=== PATIENT | female | born 1980 | race Caucasian/White ===

== ENCOUNTER 2022-02-23 19:25 | Inpatient (IN) | payer MEDICAID ==
[2022-02-23 20:52] LABS: #Basophils 0.1 thou/uL (0.0-0.2); #Eosinphils 0.3 thou/uL (0.0-0.7); #Lymphocytes 2.8 thou/uL (1.20-3.40); #Neutrophils 8.8 thou/uL (1.40-6.50); %Basophils 0.6 % (0.0-1.0); %Eosinophils 2.6 % (0.0-10.0); %Lymphocytes 21.6 % (21.0-51.0); %Monocytes 7.7 % (0.0-10.0); %Neutrophils 67.4 % (42.0-75.0); Hemoglobin 16.6 g/dL (12.0-16.0); Mean Corpuscular HGB CONC 32.5 g/dL (32.0-36.0); Mean Corpuscular Hemoglobin 30.7 pg (27.0-31.0); Mean Corpuscular Volume 94.5 fL (78.0-98.0); Mean Platelet Volume 8.4 fL (7.4-10.4); Platelet Count 299 thou/uL (130-400); RBC Distribution Width 15.3 % (11.5-14.5); Red Blood Cell (RBC) Count 5.42 mill/uL (4.20-5.40); White Blood Cell (WBC) Count 13.1 thou/uL (4.8-10.8)
[2022-02-23 21:00] LABS: BHCG - Serum Negative (NEGATIVE); Pregs Control Background? CLEAR/WHITE (CLR/WHITE); Pregs Control Bar Appear? YES (CONTROL BAR)
[2022-02-23] MEDS ORDERED: Fentanyl 100 MCG/2 ML VIAL ONE (21:00)
[2022-02-23 21:12] LABS: ALT (SGPT) 20 U/L (8-55); AST (SGOT) 21 U/L (5-34); Albumin 4.2 g/dL (3.5-5.0); Alkaline Phosphatase 93 U/L (40-110); Anion Gap 17 mmol/L (10-20); BUN (Urea Nitrogen) 20 mg/dL (7.0-18.7); Bilirubin, Total 0.9 mg/dL (0.2-1.2); Calc. Creatinine Clearance 0 mL/min (70-130); Calcium 9.4 mg/dL (7.8-10.44); Carbon Dioxide 25 mmol/L (22-29); Chloride 100 mmol/L (98-107); Estimated GFR 55; Globulin 4.2 g/dL (2.4-3.5); Glucose 208 mg/dL (70-105); Potassium 4.2 mmol/L (3.5-5.1); Protein, Total 8.4 g/dL (6.0-8.3); Sodium 138 mmol/L (136-145)
[2022-02-23] MEDS ORDERED: Ondansetron PF 4 MG/2 ML Vial IVP PRN (23:02)
[2022-02-23] MEDS ORDERED: hydrALAZINE 20 MG/ML VIAL SLOW IVP PRN (23:03)
[2022-02-23] MEDS ORDERED: HumaLOG 300 UNITS/3 ML VIAL SC PRN (23:04)
[2022-02-23] MEDS ORDERED: Dextrose 5% in Water 1,000 ML IV PRN (23:04)
[2022-02-23] MEDS ORDERED: Dextrose 50% Abboject 50 ML SYRINGE SLOW IVP PRN (23:04)
[2022-02-24] MEDS ORDERED: Cefepime 1 GM VIAL ONE (00:13)
[2022-02-24] MEDS ORDERED: Vancomycin 1 GM/200 ML BAG ONE (00:14)
[2022-02-24] MEDS ORDERED: Cefepime 2 GM VIAL ONE (00:15)
[2022-02-24 01:01] VITALS: BMI 47.4
[2022-02-24] MEDS: traMADol HCl 50 MG TAB PO PRN ×3 (03:47→14:17)
[2022-02-24] MEDS: Acetaminophen 325 MG TAB PO PRN ×2 (03:48→08:36)
[2022-02-24] MEDS: HumaLOG 300 UNITS/3 ML VIAL SC PRN ×2 (04:51→12:18)
[2022-02-24] MEDS ORDERED: Vancomycin 1 GM in Premix Bag 1 BAG IVPB SCH (05:00)
[2022-02-24 05:02] LABS: Bacteria/HPF None Seen HPF (None Seen); Bilirubin Negative (Negative); Blood, Urine Negative (Negative); Clarity Turbid (Clear); Glucose, Urine (Dipstick) >=1000 mg/dL (Negative); Ketone, Urine Trace mg/dL (Negative); Leukocyte 25 Leu/uL (Negative); Nitrite Negative (Negative); Protein, Urine (Dipstick) 70 mg/dL (Neg-Trace); Specific Gravity, Urine 1.024 (1.002-1.036); Urobilinogen Normal mg/dL (Less than 2)
[2022-02-24 05:05] LABS: Urine Culture Reflex No No
[2022-02-24 07:16] LABS: #Basophils 0.1 thou/uL (0.0-0.2); #Eosinphils 0.3 thou/uL (0.0-0.7); #Lymphocytes 2.2 thou/uL (1.20-3.40); #Monocytes 1.1 thou/uL (0.11-0.59); #Neutrophils 8.8 thou/uL (1.40-6.50); %Basophils 0.4 % (0.0-1.0); %Eosinophils 2.3 % (0.0-10.0); %Lymphocytes 17.4 % (21.0-51.0); %Monocytes 8.7 % (0.0-10.0); %Neutrophils 71.2 % (42.0-75.0); Hemoglobin 14.9 g/dL (12.0-16.0); Mean Corpuscular HGB CONC 32.1 g/dL (32.0-36.0); Mean Corpuscular Hemoglobin 30.4 pg (27.0-31.0); Mean Corpuscular Volume 94.6 fL (78.0-98.0); Mean Platelet Volume 8.7 fL (7.4-10.4); Platelet Count 285 thou/uL (130-400); RBC Distribution Width 15.2 % (11.5-14.5); White Blood Cell (WBC) Count 12.4 thou/uL (4.8-10.8)
[2022-02-24 07:40] LABS: Anion Gap 16 mmol/L (10-20); BUN (Urea Nitrogen) 24 mg/dL (7.0-18.7); Calc. Creatinine Clearance 90 mL/min (70-130); Calcium 8.7 mg/dL (7.8-10.44); Carbon Dioxide 25 mmol/L (22-29); Chloride 98 mmol/L (98-107); Estimated GFR 49; Glucose 293 mg/dL (70-105); Potassium 3.9 mmol/L (3.5-5.1); Sodium 135 mmol/L (136-145)
[2022-02-24] MEDS: Enoxaparin Sodium 40 MG/0.4 ML SYRINGE SC SCH (08:36)
[2022-02-24] MEDS: Cefepime 2 GM in Sodium Chloride 0.9% 100 ML IVPB SCH (11:23)
[2022-02-24] MEDS ORDERED: Morphine 2 MG/ML VIAL SLOW IVP PRN (11:33)
[2022-02-24] MEDS ORDERED: HYDROcodone/Acetaminophen 5/325 mg Tablet PO SCH (12:15)
[2022-02-24] MEDS ORDERED: Lidocaine 5% Patch TD SCH (12:30)
[2022-02-24] MEDS: Gabapentin 300 MG CAP PO SCH ×2 (14:13→21:05)
[2022-02-24] MEDS: HYDROcodone/Acetaminophen 5/325 mg Tablet PO PRN ×2 (17:42→21:35)
[2022-02-24] MEDS ORDERED: Transdermal Patch Removal TOP SCH (21:00)
[2022-02-24] MEDS: HumuLIN 70/30 (300 UNITS/3 ML VIAL) SC SCH (21:06)
[2022-02-25] MEDS: Cefepime 2 GM in Sodium Chloride 0.9% 100 ML IVPB SCH ×2 (00:11→12:39)
[2022-02-25] MEDS: HYDROcodone/Acetaminophen 5/325 mg Tablet PO PRN ×2 (02:45→08:45)
[2022-02-25] MEDS ORDERED: Vancomycin 1.5 GRAM/300 ML BAG 1.5 GM in Premix Bag 1 BAG IVPB SCH (03:00)
[2022-02-25] MEDS: HumaLOG 300 UNITS/3 ML VIAL SC PRN ×2 (05:48→11:57)
[2022-02-25 07:07] LABS: #Eosinphils 0.3 thou/uL (0.0-0.7); #Lymphocytes 2.9 thou/uL (1.20-3.40); #Neutrophils 7.2 thou/uL (1.40-6.50); %Basophils 0.2 % (0.0-1.0); %Eosinophils 2.8 % (0.0-10.0); %Lymphocytes 25.5 % (21.0-51.0); %Monocytes 8.6 % (0.0-10.0); %Neutrophils 62.8 % (42.0-75.0); Hemoglobin 14.4 g/dL (12.0-16.0); Mean Corpuscular HGB CONC 30.6 g/dL (32.0-36.0); Mean Corpuscular Volume 97.9 fL (78.0-98.0); Mean Platelet Volume 8.4 fL (7.4-10.4); Platelet Count 263 thou/uL (130-400); RBC Distribution Width 15.4 % (11.5-14.5); White Blood Cell (WBC) Count 11.4 thou/uL (4.8-10.8)
[2022-02-25 07:10] LABS: Hemoglobin A1c 9.2 % (4.0-6.0)
[2022-02-25 07:28] LABS: Anion Gap 16 mmol/L (10-20); BUN (Urea Nitrogen) 35 mg/dL (7.0-18.7); Calc. Creatinine Clearance 107 mL/min (70-130); Carbon Dioxide 21 mmol/L (22-29); Chloride 98 mmol/L (98-107); Estimated GFR 61; Glucose 190 mg/dL (70-105); Potassium 4.8 mmol/L (3.5-5.1); Sodium 130 mmol/L (136-145)
[2022-02-25] MEDS: Gabapentin 300 MG CAP PO SCH ×2 (08:47→14:10)
[2022-02-25] MEDS: HumuLIN 70/30 (300 UNITS/3 ML VIAL) SC SCH (08:48)
[2022-02-25] MEDS: Enoxaparin Sodium 40 MG/0.4 ML SYRINGE SC SCH (08:49)
[2022-02-25] MEDS ORDERED: Spironolactone 25 MG TAB PO SCH (09:00)
[2022-02-25] MEDS ORDERED: Atorvastatin Calcium 40 MG TAB PO SCH (09:00)
[2022-02-25] MEDS ORDERED: Multivit, Therapeutic 1 TAB PO SCH (09:00)
[2022-02-25] MEDS ORDERED: Empagliflozin 10 MG TAB PO SCH (09:00)
[2022-02-25] MEDS ORDERED: Lidocaine 5% Patch TD SCH (09:00)
[2022-02-25 11:55] VITALS: BP 97/64; TEMP 97.8
== END 2022-02-25 15:56 | disposition home or self-care (01) | DRG 563 ==
LOC: ERS 19:25 → T4-B 22:56 → OBSVTOIN 02-25 12:11
PROVIDERS: ADMIT Family Medicine; ATTEND Family Medicine
DX: S39.012A Strain of muscle, fascia and tendon of lower back, initial encounter (principal); N39.0 Urinary tract infection, site not specified; N17.9 Acute kidney failure, unspecified; I13.0 Hypertensive heart and chronic kidney disease with heart failure and stage 1 through stage 4 chronic kidney disease, or unspecified chronic kidney disease; I50.22 Chronic systolic (congestive) heart failure; Z68.42 Body mass index [BMI] 45.0-49.9, adult; Z20.822 Contact with and (suspected) exposure to COVID-19; I25.10 Atherosclerotic heart disease of native coronary artery without angina pectoris; E78.5 Hyperlipidemia, unspecified; N18.30 Chronic kidney disease, stage 3 unspecified; E11.22 Type 2 diabetes mellitus with diabetic chronic kidney disease; E66.01 Morbid (severe) obesity due to excess calories; E78.00 Pure hypercholesterolemia, unspecified; F41.9 Anxiety disorder, unspecified; F32.A Depression, unspecified; X58.XXXA Exposure to other specified factors, initial encounter; Z79.899 Other long term (current) drug therapy; Z95.810 Presence of automatic (implantable) cardiac defibrillator; I69.312 Visuospatial deficit and spatial neglect following cerebral infarction; Z88.0 Allergy status to penicillin; Z79.4 Long term (current) use of insulin; Z95.1 Presence of aortocoronary bypass graft; Z90.721 Acquired absence of ovaries, unilateral; Z83.3 Family history of diabetes mellitus; Z87.891 Personal history of nicotine dependence
CPT/HCPCS: 36415; 36416; 72100; 80048; 80053; 81001; 83036; 84703; 85025; 85652; 86140; 87040; 87086; 96365; 96372; 96375; 96376; G0378; J0692; J1650; J1815; J2405; J3010; J3370; J3490; U0003; U0005

== ENCOUNTER 2022-05-05 16:56 | Inpatient (IN) | payer MEDICAID ==
[~2022-05-05 16:56] MED LIST: Iopamidol 370 76% 100 ML VIAL ONE
[2022-05-05 18:07] LABS: CKMB 1.1 ng/mL (0-6.6)
[2022-05-05] MEDS ORDERED: Senokot S 8.6-50 MG TAB PO PRN (20:29)
[2022-05-05] MEDS ORDERED: Morphine 4 MG/ML VIAL SLOW IVP PRN (20:29)
[2022-05-05] MEDS ORDERED: Ondansetron ODT 4 MG TAB PO PRN (20:29)
[2022-05-05] MEDS ORDERED: HumaLOG 300 UNITS/3 ML VIAL SC PRN ×2 (20:43)
[2022-05-05] MEDS ORDERED: Dextrose 50% Abboject 50 ML SYRINGE SLOW IVP PRN (20:43)
[2022-05-05] MEDS ORDERED: Dextrose 5% in Water 1,000 ML IV PRN (20:43)
[2022-05-05 21:21] LABS: Magnesium 1.4 mg/dL (1.6-2.6); Phosphorus 2.4 mg/dL (2.3-4.7)
[2022-05-05 21:22] VITALS: BMI 48.9
[2022-05-05] MEDS ORDERED: Electrolyte Replacement Protocol 1 EACH FS SCH (22:00)
[2022-05-05] MEDS: HYDROcodone/Acetaminophen 7.5/325 mg Tablet PO PRN (22:39)
[2022-05-05] MEDS: Atorvastatin Calcium 40 MG TAB PO SCH (22:39)
[2022-05-05] MEDS: Ondansetron PF 4 MG/2 ML Vial IVP PRN (22:39)
[2022-05-05] MEDS: tiZANidine HCl 4 MG TAB PO SCH (22:40)
[2022-05-06] MEDS ORDERED: Magnesium Sulfate In Water 4 GM in Premix Bag 1 BAG IVPB SCH (01:00)
[2022-05-06] MEDS: HYDROcodone/Acetaminophen 7.5/325 mg Tablet PO PRN ×4 (03:05→22:45)
[2022-05-06 05:00] LABS: #Basophils 0.1 thou/uL (0.0-0.2); #Eosinphils 0.9 thou/uL (0.0-0.7); #Lymphocytes 1.9 thou/uL (1.20-3.40); #Monocytes 0.8 thou/uL (0.11-0.59); #Neutrophils 6.7 thou/uL (1.40-6.50); %Basophils 0.6 % (0.0-1.0); %Eosinophils 8.7 % (0.0-10.0); %Lymphocytes 18.3 % (21.0-51.0); %Monocytes 7.7 % (0.0-10.0); %Neutrophils 64.7 % (42.0-75.0); Hemoglobin 13.7 g/dL (12.0-16.0); Mean Corpuscular HGB CONC 31.6 g/dL (32.0-36.0); Mean Corpuscular Hemoglobin 29.7 pg (27.0-31.0); Mean Platelet Volume 8.2 fL (7.4-10.4); Platelet Count 285 thou/uL (130-400); RBC Distribution Width 15.2 % (11.5-14.5); Red Blood Cell (RBC) Count 4.61 mill/uL (4.20-5.40); White Blood Cell (WBC) Count 10.3 thou/uL (4.8-10.8)
[2022-05-06 05:17] LABS: Anion Gap 15 mmol/L (10-20); BUN (Urea Nitrogen) 17 mg/dL (7.0-18.7); Calc. Creatinine Clearance 122 mL/min (70-130); Calcium 8.6 mg/dL (7.8-10.44); Carbon Dioxide 22 mmol/L (22-29); Chloride 100 mmol/L (98-107); Estimated GFR 68; Glucose 282 mg/dL (70-105); Potassium 3.5 mmol/L (3.5-5.1); Sodium 133 mmol/L (136-145)
[2022-05-06 05:56] LABS: Magnesium 2.7 mg/dL (1.6-2.6)
[2022-05-06] MEDS ORDERED: Furosemide 40 MG/4 ML VIAL SLOW IVP SCH (06:00)
[2022-05-06] MEDS ORDERED: FLU VACC QS2022-23(6MOS UP)/PF 60 MCG/0.5 ML SYRINGE IM ONE (09:00)
[2022-05-06] MEDS ORDERED: Potassium Chloride 20 MEQ TAB PO SCH (09:00)
[2022-05-06] MEDS: Carvedilol 3.125 MG TAB PO SCH ×2 (10:01→17:53)
[2022-05-06] MEDS: Furosemide 40 MG TAB PO SCH (10:01)
[2022-05-06] MEDS ORDERED: Iopamidol-370 76% 500 ML 1 ML ONE (12:08)
[2022-05-06] MEDS: Ondansetron PF 4 MG/2 ML Vial IVP PRN ×2 (13:59→20:07)
[2022-05-06] MEDS: Atorvastatin Calcium 40 MG TAB PO SCH (20:12)
[2022-05-06] MEDS: tiZANidine HCl 4 MG TAB PO SCH (20:12)
[2022-05-06] MEDS: HumuLIN 70/30 (300 UNITS/3 ML VIAL) SC SCH (21:38)
[2022-05-07] MEDS ORDERED: diphenhydrAMINE 25 MG CAP PO SCH (02:15)
[2022-05-07] MEDS: Acetaminophen 325 MG TAB PO PRN ×3 (02:20→14:23)
[2022-05-07 05:15] LABS: #Eosinphils 0.7 thou/uL (0.0-0.7); #Lymphocytes 1.5 thou/uL (1.20-3.40); #Monocytes 0.8 thou/uL (0.11-0.59); #Neutrophils 5.3 thou/uL (1.40-6.50); %Eosinophils 8.8 % (0.0-10.0); %Lymphocytes 18.2 % (21.0-51.0); %Monocytes 9.4 % (0.0-10.0); %Neutrophils 63.7 % (42.0-75.0); Hemoglobin 13.6 g/dL (12.0-16.0); Mean Corpuscular HGB CONC 31.4 g/dL (32.0-36.0); Mean Corpuscular Volume 95.6 fL (78.0-98.0); Mean Platelet Volume 8.3 fL (7.4-10.4); Platelet Count 292 thou/uL (130-400); RBC Distribution Width 15.2 % (11.5-14.5); Red Blood Cell (RBC) Count 4.53 mill/uL (4.20-5.40); White Blood Cell (WBC) Count 8.4 thou/uL (4.8-10.8)
[2022-05-07 05:42] LABS: Anion Gap 15 mmol/L (10-20); BUN (Urea Nitrogen) 26 mg/dL (7.0-18.7); Calc. Creatinine Clearance 81 mL/min (70-130); Calcium 8.8 mg/dL (7.8-10.44); Carbon Dioxide 24 mmol/L (22-29); Chloride 98 mmol/L (98-107); Cholesterol 173 mg/dl (< 200 Desired); Estimated GFR 42; Glucose 183 mg/dL (70-105); HDL Cholesterol 29 mg/dL (>60 Neg Risk); LDL Cholesterol, Calculated 95 mg/dL; Sodium 133 mmol/L (136-145); Triglycerides 244 mg/dL (Less than 150)
[2022-05-07] MEDS: Carvedilol 3.125 MG TAB PO SCH ×2 (08:04→18:52)
[2022-05-07] MEDS: Furosemide 40 MG TAB PO SCH (08:04)
[2022-05-07] MEDS: Empagliflozin 10 MG TAB PO SCH (09:05)
[2022-05-07] MEDS: HumuLIN 70/30 (300 UNITS/3 ML VIAL) SC SCH ×2 (09:05→22:02)
[2022-05-07] MEDS ORDERED: diphenhydrAMINE 25 MG CAP PO PRN (09:25)
[2022-05-07] MEDS: tiZANidine HCl 4 MG TAB PO SCH (22:00)
[2022-05-07] MEDS: HYDROcodone/Acetaminophen 7.5/325 mg Tablet PO PRN (22:01)
[2022-05-07] MEDS: Atorvastatin Calcium 40 MG TAB PO SCH (22:01)
[2022-05-08] MEDS: HYDROcodone/Acetaminophen 7.5/325 mg Tablet PO PRN ×3 (03:39→21:04)
[2022-05-08 05:06] LABS: #Basophils 0.1 thou/uL (0.0-0.2); #Eosinphils 0.7 thou/uL (0.0-0.7); #Monocytes 1.1 thou/uL (0.11-0.59); #Neutrophils 4.8 thou/uL (1.40-6.50); %Basophils 0.6 % (0.0-1.0); %Eosinophils 8.6 % (0.0-10.0); %Lymphocytes 22.8 % (21.0-51.0); %Monocytes 12.3 % (0.0-10.0); %Neutrophils 55.6 % (42.0-75.0); Hemoglobin 14.3 g/dL (12.0-16.0); Mean Corpuscular HGB CONC 31.9 g/dL (32.0-36.0); Mean Corpuscular Hemoglobin 30.3 pg (27.0-31.0); Mean Corpuscular Volume 95.2 fL (78.0-98.0); Mean Platelet Volume 8.3 fL (7.4-10.4); Platelet Count 304 thou/uL (130-400); RBC Distribution Width 15.3 % (11.5-14.5); Red Blood Cell (RBC) Count 4.71 mill/uL (4.20-5.40); White Blood Cell (WBC) Count 8.6 thou/uL (4.8-10.8)
[2022-05-08 05:18] LABS: Anion Gap 15 mmol/L (10-20); BUN (Urea Nitrogen) 27 mg/dL (7.0-18.7); Calc. Creatinine Clearance 125 mL/min (70-130); Calcium 8.9 mg/dL (7.8-10.44); Carbon Dioxide 20 mmol/L (22-29); Chloride 106 mmol/L (98-107); Estimated GFR 73; Glucose 93 mg/dL (70-105); Potassium 3.6 mmol/L (3.5-5.1); Sodium 137 mmol/L (136-145)
[2022-05-08] MEDS ORDERED: Ketorolac Tromethamine 30 MG/ML VIAL IVP SCH (09:00)
[2022-05-08] MEDS: Empagliflozin 10 MG TAB PO SCH (12:37)
[2022-05-08] MEDS: Carvedilol 3.125 MG TAB PO SCH ×2 (12:37→19:20)
[2022-05-08] MEDS: HumuLIN 70/30 (300 UNITS/3 ML VIAL) SC SCH ×2 (12:40→21:03)
[2022-05-08] MEDS ORDERED: predniSONE 20 MG TAB PO SCH (15:45)
[2022-05-08] MEDS: Atorvastatin Calcium 40 MG TAB PO SCH (21:03)
[2022-05-08] MEDS: tiZANidine HCl 4 MG TAB PO SCH (21:03)
[2022-05-09] MEDS: HYDROcodone/Acetaminophen 7.5/325 mg Tablet PO PRN ×2 (02:22→14:53)
[2022-05-09 05:21] LABS: #Eosinphils 0.1 thou/uL (0.0-0.7); #Lymphocytes 1.8 thou/uL (1.20-3.40); #Monocytes 0.7 thou/uL (0.11-0.59); #Neutrophils 8.6 thou/uL (1.40-6.50); %Basophils 0.1 % (0.0-1.0); %Eosinophils 0.7 % (0.0-10.0); %Lymphocytes 16.2 % (21.0-51.0); Hemoglobin 13.7 g/dL (12.0-16.0); Mean Corpuscular HGB CONC 31.7 g/dL (32.0-36.0); Mean Corpuscular Volume 94.7 fL (78.0-98.0); Mean Platelet Volume 8.4 fL (7.4-10.4); Platelet Count 311 thou/uL (130-400); RBC Distribution Width 15.5 % (11.5-14.5); Red Blood Cell (RBC) Count 4.56 mill/uL (4.20-5.40); White Blood Cell (WBC) Count 11.2 thou/uL (4.8-10.8)
[2022-05-09 05:37] LABS: Anion Gap 14 mmol/L (10-20); BUN (Urea Nitrogen) 25 mg/dL (7.0-18.7); Calc. Creatinine Clearance 142 mL/min (70-130); Calcium 8.8 mg/dL (7.8-10.44); Carbon Dioxide 20 mmol/L (22-29); Chloride 104 mmol/L (98-107); Estimated GFR 82; Glucose 173 mg/dL (70-105); Potassium 4.4 mmol/L (3.5-5.1); Sodium 134 mmol/L (136-145)
[2022-05-09] MEDS ORDERED: Sodium Chloride 0.9% 500 ML IV SCH ×2 (08:45→08:46)
[2022-05-09] MEDS ORDERED: Lidocaine 5% Patch TD SCH (11:00)
[2022-05-09] MEDS: HumuLIN 70/30 (300 UNITS/3 ML VIAL) SC SCH (14:28)
[2022-05-09] MEDS: Empagliflozin 10 MG TAB PO SCH (14:28)
[2022-05-09] MEDS: Carvedilol 3.125 MG TAB PO SCH ×2 (14:28→17:18)
[2022-05-09 15:56] VITALS: BP 152/95; TEMP 97.5
[2022-05-09] MEDS ORDERED: Transdermal Patch Removal LIDOCAINE TOP SCH (23:00)
[2022-05-10] MEDS ORDERED: Spironolactone 25 MG TAB PO SCH (08:00)
[2022-05-10] MEDS ORDERED: Torsemide 20 MG TAB PO SCH (09:00)
== END 2022-05-09 20:23 | disposition home or self-care (01) | DRG 291 ==
LOC: SUATTDRO 16:56 → ERS 16:56 → 2SW 19:46 → OBSVTOIN 05-06 16:39
PROVIDERS: ADMIT Student in an Organized Health Care Education/Training Program; ATTEND Internal Medicine
DX: I11.0 Hypertensive heart disease with heart failure (principal); I50.23 Acute on chronic systolic (congestive) heart failure; Z68.42 Body mass index [BMI] 45.0-49.9, adult; E78.5 Hyperlipidemia, unspecified; F32.A Depression, unspecified; F41.9 Anxiety disorder, unspecified; E11.65 Type 2 diabetes mellitus with hyperglycemia; E66.01 Morbid (severe) obesity due to excess calories; E78.00 Pure hypercholesterolemia, unspecified; I27.21 Secondary pulmonary arterial hypertension; Z20.822 Contact with and (suspected) exposure to COVID-19; Z88.0 Allergy status to penicillin; Z95.810 Presence of automatic (implantable) cardiac defibrillator; Z95.1 Presence of aortocoronary bypass graft; Z86.73 Personal history of transient ischemic attack (TIA), and cerebral infarction without residual deficits; Z79.4 Long term (current) use of insulin; Z79.899 Other long term (current) drug therapy
CPT/HCPCS: 36415; 36416; 71275; 74177; 76856; 78451; 80048; 80061; 82553; 83735; 83880; 84100; 85025; 93005; 93306; A9500; G0378; J1815; J1885; J2405; J3475; J7030; J7512; Q9967; U0003; U0005

== ENCOUNTER 2022-06-23 13:35 | Inpatient (IN) | payer MEDICAID ==
[2022-06-23 14:33] LABS: Actual Bicarbonate (HCO3v) 18 mEq/L (22-28); Base Excess -7.3 mEq/L (-2.0 to +3.0); Calcium, Ionized (venous) 1.05 mmol/L (1.16-1.32); Chloride (VBG) 101 mmol/L (98-106); Hemoglobin (Hb) 14.3 g/dL (11.7-15.5); Potassium (VBG) 4.38 mmol/L (3.70-5.30); Sodium 135.1 mmol/L (133-146); pH (venous) 7.33 (7.32-7.43)
[2022-06-23 15:02] LABS: Anion Gap 19 mmol/L (10-20); BUN (Urea Nitrogen) 15 mg/dL (7.0-18.7); CK (CPK) 63 U/L (29-168); Calc. Creatinine Clearance 0 mL/min (70-130); Calcium 8.7 mg/dL (7.8-10.44); Carbon Dioxide 15 mmol/L (22-29); Chloride 103 mmol/L (98-107); Estimated GFR 80; Glucose 387 mg/dL (70-105); Potassium 4.4 mmol/L (3.5-5.1); Sodium 133 mmol/L (136-145)
[2022-06-23] MEDS ORDERED: NS 0.9% w/ 20 MEQ KCL 1,000 ML IV PRN ×2 (15:54)
[2022-06-23] MEDS ORDERED: Electrolyte Replacement Protocol 1 EACH IVPB SCH (15:54)
[2022-06-23] MEDS ORDERED: Sodium Chloride 0.9% 1,000 ML IV PRN ×4 (15:54)
[2022-06-23] MEDS ORDERED: Dextrose 5 %-0.45 % NaCl 1,000 ML IV PRN (15:54)
[2022-06-23] MEDS ORDERED: D5 1/2 NS w/20 mEq KCL 1,000 ML IV PRN (15:54)
[2022-06-23] MEDS ORDERED: Acetaminophen 325 MG TAB PO PRN (15:58)
[2022-06-23] MEDS ORDERED: HUMULIN R 100 UNITS in Sodium Chloride 0.9% 100 ML IVPB SCH (16:00)
[2022-06-23] MEDS ORDERED: Furosemide 40 MG/4 ML VIAL SLOW IVP SCH (16:00)
[2022-06-23 16:27] LABS: SARS-CoV-2 NAA Rapid Test Not Detected (NotDetected)
[2022-06-23 16:32] LABS: Anion Gap 15 mmol/L (10-20); BUN (Urea Nitrogen) 15 mg/dL (7.0-18.7); Calc. Creatinine Clearance 0 mL/min (70-130); Calcium 8.6 mg/dL (7.8-10.44); Carbon Dioxide 17 mmol/L (22-29); Chloride 103 mmol/L (98-107); Estimated GFR 88; Glucose 310 mg/dL (70-105); Potassium 4.2 mmol/L (3.5-5.1); Sodium 131 mmol/L (136-145)
[2022-06-23 16:36] LABS: Lactic Acid 4.6 mmol/L (0.5-2.2)
[2022-06-23] MEDS ORDERED: Ondansetron PF 4 MG/2 ML Vial ONE (16:44)
[2022-06-23] MEDS ORDERED: HYDROcodone/Acetaminophen 5/325 mg Tablet ONE (18:09)
[2022-06-23] MEDS ORDERED: Furosemide 40 MG/4 ML VIAL ONE (18:09)
[2022-06-23] MEDS: HYDROcodone/Acetaminophen 5/325 mg Tablet PO PRN (18:20)
[2022-06-23] MEDS ORDERED: Fluconazole 100 MG TAB PO SCH (18:30)
[2022-06-23] MEDS: Carvedilol 3.125 MG TAB PO SCH (19:01)
[2022-06-23 20:59] LABS: Anion Gap 16 mmol/L (10-20); BUN (Urea Nitrogen) 16 mg/dL (7.0-18.7); Calc. Creatinine Clearance 150 mL/min (70-130); Calcium 8.4 mg/dL (7.8-10.44); Carbon Dioxide 16 mmol/L (22-29); Chloride 105 mmol/L (98-107); Estimated GFR 85; Glucose 234 mg/dL (70-105); Potassium 4.9 mmol/L (3.5-5.1); Sodium 132 mmol/L (136-145)
[2022-06-23] MEDS ORDERED: Doxycycline 100 MG in Sodium Chloride 0.9% 100 ML IVPB SCH (21:00)
[2022-06-23] MEDS: Atorvastatin Calcium 40 MG TAB PO SCH (21:40)
[2022-06-23] MEDS: Famotidine 20 MG TAB PO SCH (21:40)
[2022-06-23] MEDS: Torsemide 20 MG TAB PO SCH (21:52)
[2022-06-23] MEDS ORDERED: Insulin Glargine 30 UNITS/0.3 ML VIAL SC SCH (22:45)
[2022-06-23] MEDS ORDERED: Dextrose 50% Abboject 50 ML SYRINGE IVP PRN (23:30)
[2022-06-23] MEDS ORDERED: Dextrose 5% in Water 1,000 ML IV PRN (23:30)
[2022-06-23] MEDS ORDERED: HumaLOG 300 UNITS/3 ML VIAL SC PRN (23:30)
[2022-06-24 01:15] LABS: Anion Gap 12 mmol/L (10-20); BUN (Urea Nitrogen) 20 mg/dL (7.0-18.7); Calc. Creatinine Clearance 128 mL/min (70-130); Carbon Dioxide 21 mmol/L (22-29); Chloride 105 mmol/L (98-107); Estimated GFR 70; Glucose 251 mg/dL (70-105); Potassium 5.1 mmol/L (3.5-5.1); Sodium 133 mmol/L (136-145)
[2022-06-24 04:03] LABS: Anion Gap 14 mmol/L (10-20); BUN (Urea Nitrogen) 20 mg/dL (7.0-18.7); Calc. Creatinine Clearance 147 mL/min (70-130); Carbon Dioxide 17 mmol/L (22-29); Chloride 105 mmol/L (98-107); Estimated GFR 79; Glucose 244 mg/dL (70-105); Potassium 5.1 mmol/L (3.5-5.1); Sodium 131 mmol/L (136-145)
[2022-06-24] MEDS: HumaLOG 300 UNITS/3 ML VIAL SC PRN ×2 (05:59→11:43)
[2022-06-24] MEDS: Torsemide 20 MG TAB PO SCH ×2 (09:59→20:53)
[2022-06-24] MEDS: Spironolactone 25 MG TAB PO SCH (09:59)
[2022-06-24] MEDS: Aspirin 81 mg Enteric Coated Tablet PO SCH (09:59)
[2022-06-24] MEDS: Sertraline 100 MG TAB PO SCH (09:59)
[2022-06-24] MEDS: Insulin Regular 300 UNITS/3 ML VIAL SC SCH ×3 (09:59→18:00)
[2022-06-24] MEDS: Carvedilol 3.125 MG TAB PO SCH ×2 (09:59→17:59)
[2022-06-24] MEDS: Famotidine 20 MG TAB PO SCH ×2 (09:59→20:53)
[2022-06-24] MEDS: HumuLIN 70/30 (300 UNITS/3 ML VIAL) SC SCH ×2 (10:01→21:42)
[2022-06-24] MEDS: Enoxaparin Sodium 40 MG/0.4 ML SYRINGE SC SCH (10:04)
[2022-06-24 10:08] LABS: Lactic Acid 2.2 mmol/L (0.5-2.2)
[2022-06-24 10:11] LABS: Anion Gap 11 mmol/L (10-20); BUN (Urea Nitrogen) 21 mg/dL (7.0-18.7); Calc. Creatinine Clearance 147 mL/min (70-130); Calcium 8.4 mg/dL (7.8-10.44); Carbon Dioxide 22 mmol/L (22-29); Chloride 106 mmol/L (98-107); Estimated GFR 79; Glucose 208 mg/dL (70-105); Potassium 4.4 mmol/L (3.5-5.1); Sodium 135 mmol/L (136-145)
[2022-06-24 12:43] LABS: Magnesium 1.7 mg/dL (1.6-2.6); Phosphorus 2.2 mg/dL (2.3-4.7)
[2022-06-24] MEDS ORDERED: Magnesium 2 GM/50 ML(in water) 2 GM in Premix Bag 1 BAG IVPB SCH (13:15)
[2022-06-24] MEDS ORDERED: PHOS-NAK 1 PKT PACK PO SCH (16:30)
[2022-06-24] MEDS: Atorvastatin Calcium 40 MG TAB PO SCH (20:53)
[2022-06-24] MEDS: Magnesium Chloride 64 MG TAB PO SCH (20:53)
[2022-06-24] MEDS: HYDROcodone/Acetaminophen 5/325 mg Tablet PO PRN (20:58)
[2022-06-24] MEDS: Ondansetron PF 4 MG/2 ML Vial IVP PRN (21:44)
[2022-06-25] MEDS: Ondansetron PF 4 MG/2 ML Vial IVP PRN (04:23)
[2022-06-25 04:35] LABS: Anion Gap 15 mmol/L (10-20); BUN (Urea Nitrogen) 26 mg/dL (7.0-18.7); Calc. Creatinine Clearance 135 mL/min (70-130); Calcium 8.4 mg/dL (7.8-10.44); Carbon Dioxide 22 mmol/L (22-29); Chloride 101 mmol/L (98-107); Estimated GFR 71; Glucose 105 mg/dL (70-105); Potassium 4.3 mmol/L (3.5-5.1); Sodium 134 mmol/L (136-145)
[2022-06-25] MEDS: Aspirin 81 mg Enteric Coated Tablet PO SCH (08:26)
[2022-06-25] MEDS: Sertraline 100 MG TAB PO SCH (08:26)
[2022-06-25] MEDS: Spironolactone 25 MG TAB PO SCH (08:26)
[2022-06-25] MEDS: Carvedilol 3.125 MG TAB PO SCH ×2 (08:26→17:29)
[2022-06-25] MEDS: Famotidine 20 MG TAB PO SCH ×2 (08:26→20:42)
[2022-06-25] MEDS: Torsemide 20 MG TAB PO SCH ×2 (08:26→20:41)
[2022-06-25] MEDS: Enoxaparin Sodium 40 MG/0.4 ML SYRINGE SC SCH (08:27)
[2022-06-25] MEDS: Magnesium Chloride 64 MG TAB PO SCH ×2 (08:27→20:41)
[2022-06-25] MEDS: HumuLIN 70/30 (300 UNITS/3 ML VIAL) SC SCH ×2 (08:29→20:45)
[2022-06-25] MEDS: HYDROcodone/Acetaminophen 5/325 mg Tablet PO PRN ×2 (08:35→20:40)
[2022-06-25] MEDS: Insulin Regular 300 UNITS/3 ML VIAL SC SCH ×3 (08:57→17:29)
[2022-06-25] MEDS: Atorvastatin Calcium 40 MG TAB PO SCH (20:41)
[2022-06-26] MEDS: HYDROcodone/Acetaminophen 5/325 mg Tablet PO PRN ×4 (04:11→19:42)
[2022-06-26] MEDS: Ondansetron PF 4 MG/2 ML Vial IVP PRN ×2 (04:11→19:42)
[2022-06-26 05:22] LABS: Hemoglobin 12.9 g/dL (12.0-16.0); Mean Corpuscular Hemoglobin 30.3 pg (27.0-31.0); Mean Corpuscular Volume 97.8 fl (78.0-98.0); Mean Platelet Volume 8.1 fL (7.4-10.4); Platelet Count 239 10x3/uL (130-400); RBC Distribution Width 16.3 % (11.5-14.5); Red Blood Cell (RBC) Count 4.24 mill/uL (4.20-5.40); White Blood Cell (WBC) Count 11.9 10x3/uL (4.8-10.8)
[2022-06-26 05:23] LABS: #Basophils 0.1 thou/uL (0.0-0.2); #Eosinphils 0.2 thou/uL (0.0-0.7); #Lymphocytes 2.9 thou/uL (1.20-3.40); #Monocytes 1.4 thou/uL (0.11-0.59); #Neutrophils 7.7 thou/uL (1.40-6.50); %Basophils 0.6 % (0.0-1.0); %Eosinophils 1.4 % (0.0-10.0); %Lymphocytes 23.5 % (21.0-51.0); %Monocytes 11.5 % (0.0-10.0)
[2022-06-26 05:30] LABS: Anion Gap 15 mmol/L (10-20); BUN (Urea Nitrogen) 28 mg/dL (7.0-18.7); Calc. Creatinine Clearance 129 mL/min (70-130); Calcium 8.1 mg/dL (7.8-10.44); Carbon Dioxide 21 mmol/L (22-29); Chloride 99 mmol/L (98-107); Estimated GFR 68; Glucose 132 mg/dL (70-105); Sodium 131 mmol/L (136-145)
[2022-06-26] MEDS: Empagliflozin 10 MG TAB PO SCH (08:45)
[2022-06-26] MEDS: Aspirin 81 mg Enteric Coated Tablet PO SCH (08:45)
[2022-06-26] MEDS: Carvedilol 3.125 MG TAB PO SCH ×2 (08:45→17:48)
[2022-06-26] MEDS: Senokot S 8.6-50 MG TAB PO PRN (08:46)
[2022-06-26] MEDS: Spironolactone 25 MG TAB PO SCH (08:46)
[2022-06-26] MEDS: Enoxaparin Sodium 40 MG/0.4 ML SYRINGE SC SCH (08:46)
[2022-06-26] MEDS: Sertraline 100 MG TAB PO SCH (08:46)
[2022-06-26] MEDS: Famotidine 20 MG TAB PO SCH ×2 (08:46→20:49)
[2022-06-26] MEDS: Torsemide 20 MG TAB PO SCH ×2 (08:46→20:50)
[2022-06-26] MEDS: Magnesium Chloride 64 MG TAB PO SCH ×2 (08:47→20:50)
[2022-06-26] MEDS: Insulin Regular 300 UNITS/3 ML VIAL SC SCH ×3 (08:48→17:49)
[2022-06-26] MEDS: HumuLIN 70/30 (300 UNITS/3 ML VIAL) SC SCH ×2 (08:50→20:50)
[2022-06-26] MEDS: HumaLOG 300 UNITS/3 ML VIAL SC PRN (11:41)
[2022-06-26] MEDS ORDERED: Furosemide 40 MG/4 ML VIAL SLOW IVP SCH (13:15)
[2022-06-26] MEDS: Atorvastatin Calcium 40 MG TAB PO SCH (20:49)
[2022-06-27] MEDS: HYDROcodone/Acetaminophen 5/325 mg Tablet PO PRN ×3 (02:23→20:25)
[2022-06-27] MEDS: Ondansetron PF 4 MG/2 ML Vial IVP PRN ×3 (02:23→20:25)
[2022-06-27 04:06] LABS: BHCG - Serum Negative (NEGATIVE); Pregs Control Background? CLEAR/WHITE (CLR/WHITE); Pregs Control Bar Appear? YES (CONTROL BAR)
[2022-06-27 04:25] LABS: Anion Gap 15 mmol/L (10-20); BUN (Urea Nitrogen) 28 mg/dL (7.0-18.7); Calc. Creatinine Clearance 139 mL/min (70-130); Calcium 8.1 mg/dL (7.8-10.44); Carbon Dioxide 20 mmol/L (22-29); Chloride 101 mmol/L (98-107); Estimated GFR 74; Glucose 80 mg/dL (70-105); Potassium 4.2 mmol/L (3.5-5.1); Sodium 132 mmol/L (136-145)
[2022-06-27 04:54] LABS: Anisocytosis SLIGHT = 6-15 cells (100X) (0-5/hpf); Band 2 % (5-11); Eosinophils 1 % (0-10); Hemoglobin 12.4 g/dL (12.0-16.0); Hypochromia SLIGHT = 6-15 cells (100X) (0-5/hpf); Lymphocytes 17 % (21-51); MDiff Complete? YES; Mean Corpuscular HGB CONC 30.3 g/dL (32.0-36.0); Mean Corpuscular Hemoglobin 29.6 pg (27.0-31.0); Mean Corpuscular Volume 97.8 fl (78.0-98.0); Mean Platelet Volume 8.9 fL (7.4-10.4); Monocytes 8 % (0-10); Neutrophil 72 % (42-75); Nucleated RBC 2 % (0); Platelet Count 228 10x3/uL (130-400); Platelet Morphology Comment Appears Adequate; Polychromasia SLIGHT = 2-3 cells (100X) (0-2/hpf); RBC Distribution Width 16.2 % (11.5-14.5); Red Blood Cell (RBC) Count 4.17 mill/uL (4.20-5.40); Target Cells SLIGHT = 2-5 cells (100X) (0-1/hpf); White Blood Cell (WBC) Count 12.3 10x3/uL (4.8-10.8)
[2022-06-27] MEDS ORDERED: Regadenoson 0.4 MG/5 ML SYRINGE ONE (08:16)
[2022-06-27] MEDS: Spironolactone 25 MG TAB PO SCH (08:50)
[2022-06-27] MEDS: Famotidine 20 MG TAB PO SCH ×2 (08:50→20:25)
[2022-06-27] MEDS: Aspirin 81 mg Enteric Coated Tablet PO SCH (08:50)
[2022-06-27] MEDS: Empagliflozin 10 MG TAB PO SCH (08:50)
[2022-06-27] MEDS: Enoxaparin Sodium 40 MG/0.4 ML SYRINGE SC SCH (08:50)
[2022-06-27] MEDS: Sertraline 100 MG TAB PO SCH (08:50)
[2022-06-27] MEDS: Torsemide 20 MG TAB PO SCH ×2 (08:50→20:25)
[2022-06-27] MEDS: Carvedilol 3.125 MG TAB PO SCH ×2 (08:50→16:38)
[2022-06-27] MEDS: Insulin Regular 300 UNITS/3 ML VIAL SC SCH ×3 (08:51→16:39)
[2022-06-27] MEDS: HumuLIN 70/30 (300 UNITS/3 ML VIAL) SC SCH ×2 (08:52→21:14)
[2022-06-27] MEDS: Magnesium Chloride 64 MG TAB PO SCH ×2 (08:52→20:24)
[2022-06-27] MEDS: Senokot S 8.6-50 MG TAB PO PRN (08:56)
[2022-06-27] MEDS ORDERED: Spironolactone 25 MG TAB PO SCH ×2 (09:00)
[2022-06-27] MEDS ORDERED: FLU VACC QS2022-23(6MOS UP)/PF 60 MCG/0.5 ML SYRINGE IM ONE (09:00)
[2022-06-27 17:57] VITALS: BMI 52.0
[2022-06-27] MEDS ORDERED: diphenhydrAMINE 25 MG CAP PO SCH (19:45)
[2022-06-27] MEDS: Atorvastatin Calcium 40 MG TAB PO SCH (20:27)
[2022-06-28] MEDS: HYDROcodone/Acetaminophen 5/325 mg Tablet PO PRN ×3 (01:56→14:00)
[2022-06-28 04:22] LABS: Anion Gap 12 mmol/L (10-20); BUN (Urea Nitrogen) 24 mg/dL (7.0-18.7); Calc. Creatinine Clearance 127 mL/min (70-130); Calcium 8.3 mg/dL (7.8-10.44); Carbon Dioxide 24 mmol/L (22-29); Chloride 100 mmol/L (98-107); Estimated GFR 67; Glucose 138 mg/dL (70-105); Potassium 3.2 mmol/L (3.5-5.1); Sodium 133 mmol/L (136-145)
[2022-06-28 04:29] LABS: #Basophils 0.1 thou/uL (0.0-0.2); #Eosinphils 0.3 thou/uL (0.0-0.7); #Lymphocytes 2.7 thou/uL (1.20-3.40); #Monocytes 1.5 thou/uL (0.11-0.59); #Neutrophils 7.7 thou/uL (1.40-6.50); %Basophils 0.5 % (0.0-1.0); %Eosinophils 2.1 % (0.0-10.0); %Lymphocytes 22.2 % (21.0-51.0); %Monocytes 12.3 % (0.0-10.0); %Neutrophils 62.9 % (42.0-75.0); Hemoglobin 12.9 g/dL (12.0-16.0); Mean Corpuscular HGB CONC 31.4 g/dL (32.0-36.0); Mean Corpuscular Hemoglobin 30.3 pg (27.0-31.0); Mean Corpuscular Volume 96.6 fl (78.0-98.0); Mean Platelet Volume 8.3 fL (7.4-10.4); Platelet Count 246 10x3/uL (130-400); RBC Distribution Width 15.6 % (11.5-14.5); Red Blood Cell (RBC) Count 4.26 mill/uL (4.20-5.40); White Blood Cell (WBC) Count 12.2 10x3/uL (4.8-10.8)
[2022-06-28] MEDS ORDERED: Potassium Chloride 20 MEQ TAB PO SCH (08:00)
[2022-06-28] MEDS: Sertraline 100 MG TAB PO SCH (08:41)
[2022-06-28] MEDS: Spironolactone 25 MG TAB PO SCH (08:41)
[2022-06-28] MEDS: Carvedilol 3.125 MG TAB PO SCH ×2 (08:41→17:05)
[2022-06-28] MEDS: Enoxaparin Sodium 40 MG/0.4 ML SYRINGE SC SCH (08:41)
[2022-06-28] MEDS: Aspirin 81 mg Enteric Coated Tablet PO SCH (08:41)
[2022-06-28] MEDS: Magnesium Chloride 64 MG TAB PO SCH (08:42)
[2022-06-28] MEDS: Famotidine 20 MG TAB PO SCH (08:42)
[2022-06-28] MEDS: Insulin Regular 300 UNITS/3 ML VIAL SC SCH ×3 (08:42→17:06)
[2022-06-28] MEDS: Empagliflozin 10 MG TAB PO SCH (08:42)
[2022-06-28] MEDS: Torsemide 20 MG TAB PO SCH (08:42)
[2022-06-28] MEDS: HumuLIN 70/30 (300 UNITS/3 ML VIAL) SC SCH (08:43)
[2022-06-28] MEDS: Ondansetron PF 4 MG/2 ML Vial IVP PRN ×2 (08:46→14:00)
[2022-06-28 12:12] VITALS: TEMP 97.7
[2022-06-28 16:37] VITALS: BP 110/76
== END 2022-06-28 18:30 | disposition home or self-care (01) | DRG 871 ==
LOC: ERS 13:35 → ERHOLD 14:58 → IMCU/EMU 21:20 → 2NO 06-25 00:35
PROVIDERS: ADMIT Student in an Organized Health Care Education/Training Program; ATTEND Internal Medicine
DX: A41.9 Sepsis, unspecified organism (principal); E11.10 Type 2 diabetes mellitus with ketoacidosis without coma; J18.9 Pneumonia, unspecified organism; J96.01 Acute respiratory failure with hypoxia; I50.23 Acute on chronic systolic (congestive) heart failure; N76.4 Abscess of vulva; Z68.43 Body mass index [BMI] 50.0-59.9, adult; E87.1 Hypo-osmolality and hyponatremia; R65.20 Severe sepsis without septic shock; Z20.822 Contact with and (suspected) exposure to COVID-19; E11.9 Type 2 diabetes mellitus without complications; I25.10 Atherosclerotic heart disease of native coronary artery without angina pectoris; E78.00 Pure hypercholesterolemia, unspecified; F32.A Depression, unspecified; F41.9 Anxiety disorder, unspecified; R07.89 Other chest pain; Z60.2 Problems related to living alone; I25.5 Ischemic cardiomyopathy; E87.6 Hypokalemia; E83.42 Hypomagnesemia; E83.39 Other disorders of phosphorus metabolism; E66.01 Morbid (severe) obesity due to excess calories; I11.0 Hypertensive heart disease with heart failure; Z95.810 Presence of automatic (implantable) cardiac defibrillator; Z83.3 Family history of diabetes mellitus; Z88.0 Allergy status to penicillin; Z95.1 Presence of aortocoronary bypass graft; Z79.4 Long term (current) use of insulin; Z79.899 Other long term (current) drug therapy; Z86.73 Personal history of transient ischemic attack (TIA), and cerebral infarction without residual deficits; Z87.891 Personal history of nicotine dependence; Z90.721 Acquired absence of ovaries, unilateral; Z79.82 Long term (current) use of aspirin; I25.2 Old myocardial infarction; Z80.3 Family history of malignant neoplasm of breast
CPT/HCPCS: 36415; 36416; 71045; 78452; 80048; 82010; 82805; 83605; 83735; 83880; 84100; 84146; 84443; 84703; 85025; 93017; 94660; 95712; 95819; 95957; A9500; J1650; J1815; J1940; J1956; J2405; J2785; J3475; J3490

== ENCOUNTER 2022-07-14 18:15 | Inpatient (IN) | payer MEDICAID ==
[2022-07-15 00:55] VITALS: BMI 55.0
[2022-07-15] MEDS ORDERED: Insulin Regular 300 UNITS/3 ML VIAL SC PRN ×2 (01:59)
[2022-07-15] MEDS ORDERED: Dextrose 50% Abboject 50 ML SYRINGE SLOW IVP PRN (01:59)
[2022-07-15] MEDS ORDERED: Acetaminophen 325 MG TAB PO PRN (01:59)
[2022-07-15] MEDS ORDERED: Dextrose 5% in Water 1,000 ML IV PRN (01:59)
[2022-07-15] MEDS ORDERED: Ondansetron PF 4 MG/2 ML Vial IVP PRN (01:59)
[2022-07-15] MEDS ORDERED: Ondansetron ODT 4 MG TAB PO PRN (01:59)
[2022-07-15] MEDS ORDERED: Ketorolac Tromethamine 30 MG/ML VIAL IVP SCH (02:15)
[2022-07-15] MEDS: Cefepime 2 GM in Sodium Chloride 0.9% 100 ML IVPB SCH ×2 (02:25→15:10)
[2022-07-15 02:35] LABS: Hemoglobin 12.5 g/dL (12.0-16.0); Mean Corpuscular HGB CONC 31.2 g/dL (32.0-36.0); Mean Corpuscular Hemoglobin 28.3 pg (27.0-31.0); Mean Platelet Volume 9.1 fL (7.4-10.4); Platelet Count 306 10x3/uL (130-400)
[2022-07-15 02:50] LABS: Phosphorus 2.9 mg/dL (2.3-4.7)
[2022-07-15 02:51] LABS: Anion Gap 16 mmol/L (10-20); BUN (Urea Nitrogen) 10 mg/dL (7.0-18.7); Calc. Creatinine Clearance 168 mL/min (70-130); Calcium 8.4 mg/dL (7.8-10.44); Carbon Dioxide 17 mmol/L (22-29); Chloride 105 mmol/L (98-107); Estimated GFR 88; Glucose 247 mg/dL (70-105); Magnesium 1.6 mg/dL (1.6-2.6); Potassium 3.5 mmol/L (3.5-5.1); Sodium 134 mmol/L (136-145)
[2022-07-15 02:58] LABS: Eosinophils 4 % (0-10); Lymphocytes 23 % (21-51); MDiff Complete? YES; Monocytes 11 % (0-10); Neutrophil 61 % (42-75); Nucleated RBC 1 % (0); Reactive Lymphocytes 1 % (0-10); White Blood Cell (WBC) Count 7.8 10x3/uL (4.8-10.8)
[2022-07-15] MEDS ORDERED: VANCOMYCIN 2 GRAM/500 ML BAG 2 GM in Premix Bag 1 BAG IVPB SCH (03:30)
[2022-07-15 06:24] LABS: Lactic Acid 2.8 mmol/L (0.5-2.2)
[2022-07-15] MEDS ORDERED: Furosemide 40 MG/4 ML VIAL SLOW IVP SCH (09:00)
[2022-07-15] MEDS: Insulin Regular 300 UNITS/3 ML VIAL SC SCH ×3 (09:17→16:33)
[2022-07-15] MEDS: Empagliflozin 10 MG TAB PO SCH (09:17)
[2022-07-15] MEDS: Sertraline 100 MG TAB PO SCH (09:17)
[2022-07-15] MEDS: Carvedilol 3.125 MG TAB PO SCH ×2 (09:17→16:51)
[2022-07-15] MEDS: HYDROcodone/Acetaminophen 5/325 mg Tablet PO PRN ×3 (09:25→21:17)
[2022-07-15] MEDS: HumuLIN 70/30 (300 UNITS/3 ML VIAL) SC SCH ×2 (10:28→21:12)
[2022-07-15] MEDS ORDERED: VANCOMYCIN 1.75 GM/500 ML BAG 1.75 GM in Premix Bag 1 BAG IVPB SCH (16:00)
[2022-07-15] MEDS ORDERED: Atorvastatin Calcium 40 MG TAB PO SCH (21:00)
[2022-07-15] MEDS ORDERED: Rosuvastatin 20 MG TAB PO SCH (21:00)
[2022-07-15] MEDS ORDERED: Metoclopramide HCl 10 MG/2 ML VIAL IVP SCH (21:30)
[2022-07-16] MEDS: Cefepime 2 GM in Sodium Chloride 0.9% 100 ML IVPB SCH ×2 (03:49→14:25)
[2022-07-16 05:41] LABS: Hemoglobin 11.4 g/dL (12.0-16.0); Mean Corpuscular HGB CONC 29.6 g/dL (32.0-36.0); Mean Corpuscular Hemoglobin 27.3 pg (27.0-31.0); Mean Corpuscular Volume 92.2 fl (78.0-98.0); Mean Platelet Volume 9.1 fL (7.4-10.4); Platelet Count 327 10x3/uL (130-400); RBC Distribution Width 17.1 % (11.5-14.5); Red Blood Cell (RBC) Count 4.19 mill/uL (4.20-5.40); White Blood Cell (WBC) Count 8.5 10x3/uL (4.8-10.8)
[2022-07-16 05:53] LABS: Lactic Acid 0.9 mmol/L (0.5-2.2)
[2022-07-16 05:56] LABS: Anion Gap 12 mmol/L (10-20); BUN (Urea Nitrogen) 15 mg/dL (7.0-18.7); Calc. Creatinine Clearance 126 mL/min (70-130); Calcium 8.4 mg/dL (7.8-10.44); Carbon Dioxide 20 mmol/L (22-29); Chloride 104 mmol/L (98-107); Estimated GFR 62; Glucose 89 mg/dL (70-105); Potassium 3.4 mmol/L (3.5-5.1); Sodium 133 mmol/L (136-145)
[2022-07-16 06:47] LABS: Anisocytosis SLIGHT = 6-15 cells (100X) (0-5/hpf); Band 3 % (5-11); Eosinophils 5 % (0-10); Lymphocytes 24 % (21-51); MDiff Complete? YES; Monocytes 7 % (0-10); Neutrophil 61 % (42-75); Nucleated RBC 1 % (0)
[2022-07-16] MEDS ORDERED: Spironolactone 25 MG TAB PO SCH (08:00)
[2022-07-16] MEDS ORDERED: Torsemide 20 MG TAB PO SCH (09:00)
[2022-07-16] MEDS ORDERED: Aspirin 81 mg Enteric Coated Tablet PO SCH (09:00)
[2022-07-16] MEDS: Insulin Regular 300 UNITS/3 ML VIAL SC SCH ×2 (09:16→13:12)
[2022-07-16] MEDS: Carvedilol 3.125 MG TAB PO SCH (09:16)
[2022-07-16] MEDS: Empagliflozin 10 MG TAB PO SCH (09:16)
[2022-07-16] MEDS: Sertraline 100 MG TAB PO SCH (09:16)
[2022-07-16] MEDS: HumuLIN 70/30 (300 UNITS/3 ML VIAL) SC SCH (10:29)
[2022-07-16 12:39] VITALS: TEMP 97.9
[2022-07-16] MEDS: HYDROcodone/Acetaminophen 5/325 mg Tablet PO PRN (14:24)
[2022-07-16 15:25] VITALS: BP 120/75
== END 2022-07-16 17:00 | disposition home or self-care (01) | DRG 291 ==
LOC: 2SW 18:15 → OBSVTOIN 07-15 15:52
PROVIDERS: ADMIT Student in an Organized Health Care Education/Training Program; ATTEND Hospitalist
DX: I11.0 Hypertensive heart disease with heart failure (principal); I50.23 Acute on chronic systolic (congestive) heart failure; E87.20 Acidosis, unspecified; L03.311 Cellulitis of abdominal wall; Z68.43 Body mass index [BMI] 50.0-59.9, adult; Z20.822 Contact with and (suspected) exposure to COVID-19; E78.5 Hyperlipidemia, unspecified; F32.A Depression, unspecified; I25.10 Atherosclerotic heart disease of native coronary artery without angina pectoris; E11.59 Type 2 diabetes mellitus with other circulatory complications; E66.01 Morbid (severe) obesity due to excess calories; Z88.0 Allergy status to penicillin; Z88.1 Allergy status to other antibiotic agents; Z79.4 Long term (current) use of insulin; Z79.899 Other long term (current) drug therapy; Z79.82 Long term (current) use of aspirin; Z95.1 Presence of aortocoronary bypass graft
CPT/HCPCS: 36415; 36416; 80048; 83605; 83735; 84100; 85025; 96374; 96375; G0378; J0692; J1815; J1885; J1940; J2405; J2765; J3370; J3490; Q0162; U0003; U0005

== ENCOUNTER 2022-07-26 20:33 | Inpatient (IN) | payer MEDICARE, MEDICAID ==
[~2022-07-26 20:33] MED LIST changes: -Iopamidol 370 76% 100 ML VIAL ONE; +Iopamidol-370 76% 500 ML 1 ML ONE
[2022-07-26] MEDS ORDERED: Albuterol Sulfate 2.5 mg/3 ml Neb ONE ×2 (20:57→21:36)
[2022-07-26 21:50] LABS: Anion Gap 20 mmol/L (10-20); BUN (Urea Nitrogen) 9 mg/dL (7.0-18.7); Calc. Creatinine Clearance 0 mL/min (70-130); Carbon Dioxide 18 mmol/L (22-29); Chloride 103 mmol/L (98-107); Estimated GFR 83; Magnesium 1.1 mg/dL (1.6-2.6); Potassium 3.5 mmol/L (3.5-5.1); Sodium 137 mmol/L (136-145)
[2022-07-26 21:54] LABS: Glucose 412 mg/dL (70-105)
[2022-07-26] MEDS ORDERED: Magnesium 2 GM/50 ML(in water) 2 GM in Premix Bag 1 BAG IVPB SCH (23:00)
[2022-07-26] MEDS ORDERED: Insulin Regular 300 UNITS/3 ML VIAL ONE (23:03)
[2022-07-26] MEDS ORDERED: Potassium Chloride 20 MEQ TAB ONE (23:03)
[2022-07-26] MEDS ORDERED: Magnesium 2 GM/50 ML BAG (IN WATER) ONE (23:03)
[2022-07-26] MEDS ORDERED: Ondansetron ODT 4 MG TAB PO PRN (23:09)
[2022-07-26] MEDS ORDERED: Ondansetron PF 4 MG/2 ML Vial IVP PRN (23:09)
[2022-07-26] MEDS ORDERED: Acetaminophen 325 MG TAB PO PRN (23:09)
[2022-07-26] MEDS ORDERED: Dextrose 50% Abboject 50 ML SYRINGE SLOW IVP PRN (23:09)
[2022-07-26] MEDS ORDERED: HumaLOG 300 UNITS/3 ML VIAL SC PRN (23:09)
[2022-07-26] MEDS ORDERED: Dextrose 5% in Water 1,000 ML IV PRN (23:09)
[2022-07-26] MEDS ORDERED: Electrolyte Replacement Protocol 1 EACH FS SCH (23:15)
[2022-07-26] MEDS ORDERED: Furosemide 20 MG/2 ML VIAL SLOW IVP SCH (23:15)
[2022-07-27 01:48] LABS: Troponin I 0.014 ng/mL (< 0.028)
[2022-07-27] MEDS ORDERED: Magnesium 2 GM/50 ML(in water) 2 GM in Premix Bag 1 BAG IVPB SCH (02:30)
[2022-07-27 03:20] LABS: SARS-CoV-2 NAA Rapid Test DETECTED (NotDetected)
[2022-07-27 03:24] VITALS: BMI 57.7
[2022-07-27] MEDS ORDERED: Dexamethasone 10 MG/ML VIAL SLOW IVP SCH ×2 (04:00→05:30)
[2022-07-27] MEDS ORDERED: Dexamethasone 4 mg/ml Vial SLOW IVP SCH ×2 (04:00→09:00)
[2022-07-27] MEDS ORDERED: Dexamethasone 10 MG in Sodium Chloride 0.9% 50 ML IVPB SCH (04:00)
[2022-07-27 05:00] LABS: #Lymphocytes 0.8 thou/uL (1.20-3.40); #Monocytes 0.3 thou/uL (0.11-0.59); #Neutrophils 10.1 thou/uL (1.40-6.50); %Basophils 0.1 % (0.0-1.0); %Lymphocytes 6.8 % (21.0-51.0); %Monocytes 2.6 % (0.0-10.0); %Neutrophils 90.5 % (42.0-75.0); Hemoglobin 11.7 g/dL (12.0-16.0); Mean Corpuscular Hemoglobin 28.3 pg (27.0-31.0); Mean Corpuscular Volume 88.4 fl (78.0-98.0); Mean Platelet Volume 9.6 fL (7.4-10.4); Platelet Count 217 10x3/uL (130-400); RBC Distribution Width 18.3 % (11.5-14.5); Red Blood Cell (RBC) Count 4.12 mill/uL (4.20-5.40); White Blood Cell (WBC) Count 11.2 10x3/uL (4.8-10.8)
[2022-07-27 05:12] LABS: Anion Gap 18 mmol/L (10-20); BUN (Urea Nitrogen) 13 mg/dL (7.0-18.7); Calc. Creatinine Clearance 144 mL/min (70-130); Calcium 8.1 mg/dL (7.8-10.44); Carbon Dioxide 19 mmol/L (22-29); Chloride 101 mmol/L (98-107); Estimated GFR 69; Magnesium 2.1 mg/dL (1.6-2.6); Phosphorus 3.2 mg/dL (2.3-4.7); Potassium 3.7 mmol/L (3.5-5.1); Sodium 134 mmol/L (136-145)
[2022-07-27 05:16] LABS: Troponin I 0.013 ng/mL (< 0.028)
[2022-07-27 05:25] LABS: Glucose 510 mg/dL (70-105)
[2022-07-27] MEDS ORDERED: Insulin Regular 300 UNITS/3 ML VIAL IVP SCH (06:00)
[2022-07-27] MEDS: Furosemide 40 MG/4 ML VIAL SLOW IVP SCH ×2 (06:40→14:33)
[2022-07-27] MEDS ORDERED: NPH, Human Insulin Isophane 300 UNIT/3 ML VIAL SC SCH (09:00)
[2022-07-27] MEDS ORDERED: Insulin NPH Human Isophane 100 UNIT/ML (10 ML VIAL) SC SCH (09:30)
[2022-07-27] MEDS: Carvedilol 3.125 MG TAB PO SCH ×2 (10:13→17:52)
[2022-07-27] MEDS: Aspirin 81 mg Enteric Coated Tablet PO SCH (10:13)
[2022-07-27] MEDS: Empagliflozin 10 MG TAB PO SCH (10:13)
[2022-07-27] MEDS: Insulin Regular 300 UNITS/3 ML VIAL SC SCH ×3 (10:13→17:52)
[2022-07-27] MEDS: Sertraline 100 MG TAB PO SCH (10:13)
[2022-07-27 10:55] LABS: Amphetamine Not Detected (NotDetected); Barbiturates Screen Not Detected (NotDetected); Benzodiazepine Screen Not Detected (NotDetected); Cocaine Metabolite Screen Not Detected (NotDetected); Methadone Not Detected (NotDetected); Methamphetamine Not Detected (NotDetected); Opiate Screen Not Detected (NotDetected); Oxycodone Screen Not Detected (NotDetected); Phencyclidine (PCP) Not Detected (NotDetected); THC/Cannabinoid Screen Detected (NotDetected); Tricyclic Screen Not Detected (NotDetected)
[2022-07-27] MEDS: HumaLOG 300 UNITS/3 ML VIAL SC PRN ×3 (12:26→22:14)
[2022-07-27] MEDS ORDERED: Dextrose 5% in Water 1,000 ML IV PRN (16:08)
[2022-07-27] MEDS ORDERED: Dextrose 50% Abboject 50 ML SYRINGE SLOW IVP PRN (16:08)
[2022-07-27] MEDS ORDERED: Cepastat Lozenges 1 LOZ PO PRN (16:53)
[2022-07-27] MEDS ORDERED: Acetaminophen 500 MG TAB PO PRN (16:53)
[2022-07-27] MEDS ORDERED: Moisturizing Cream (Eucerin) 113 GM JAR TOP PRN (16:53)
[2022-07-27] MEDS ORDERED: Artificial Tear Sol 15 ML BOT EA EYE PRN (16:53)
[2022-07-27] MEDS ORDERED: Albuterol 200 PUFF (6.7GM INHALER) INH PRN (17:04)
[2022-07-27 17:41] LABS: ALT (SGPT) 9 U/L (8-55); AST (SGOT) 17 U/L (5-34); Alkaline Phosphatase 81 U/L (40-110); Bilirubin, Direct 0.7 mg/dL (0.1-0.3); Bilirubin, Total 1.5 mg/dL (0.2-1.2); Protein, Total 7.7 g/dL (6.0-8.3)
[2022-07-27] MEDS ORDERED: REMDESIVIR 200 MG in Sodium Chloride 0.9% 250 ML 210 ML IV SCH (18:00)
[2022-07-27] MEDS: Enoxaparin Sodium 40 MG/0.4 ML SYRINGE SC SCH (22:14)
[2022-07-27] MEDS: Insulin NPH Human Isophane 100 UNIT/ML (10 ML VIAL) SC SCH (22:14)
[2022-07-27] MEDS: Atorvastatin Calcium 40 MG TAB PO SCH (22:15)
[2022-07-27] MEDS: Famotidine 20 MG TAB PO SCH (22:15)
[2022-07-28 05:06] LABS: Hemoglobin A1c 10.8 % (4.0-6.0)
[2022-07-28 05:19] LABS: ALT (SGPT) 9 U/L (8-55); AST (SGOT) 20 U/L (5-34); Albumin 3.7 g/dL (3.5-5.0); Alkaline Phosphatase 85 U/L (40-110); Bilirubin, Direct 0.7 mg/dL (0.1-0.3); Bilirubin, Total 1.5 mg/dL (0.2-1.2); Protein, Total 7.2 g/dL (6.0-8.3)
[2022-07-28 05:21] LABS: #Lymphocytes 2.5 thou/uL (1.20-3.40); #Monocytes 0.9 thou/uL (0.11-0.59); #Neutrophils 15.5 thou/uL (1.40-6.50); %Basophils 0.1 % (0.0-1.0); %Eosinophils 0.2 % (0.0-10.0); %Lymphocytes 13.3 % (21.0-51.0); %Monocytes 4.6 % (0.0-10.0); %Neutrophils 81.8 % (42.0-75.0); Hemoglobin 12.3 g/dL (12.0-16.0); Mean Corpuscular HGB CONC 30.6 g/dL (32.0-36.0); Mean Corpuscular Hemoglobin 26.8 pg (27.0-31.0); Mean Corpuscular Volume 87.6 fl (78.0-98.0); Mean Platelet Volume 9.8 fL (7.4-10.4); Platelet Count 234 10x3/uL (130-400); RBC Distribution Width 18.3 % (11.5-14.5); Red Blood Cell (RBC) Count 4.59 mill/uL (4.20-5.40)
[2022-07-28 05:51] LABS: Anion Gap 15 mmol/L (10-20); BUN (Urea Nitrogen) 21 mg/dL (7.0-18.7); CRP (Inflammatory) 3.97 mg/dL (= or < 0.5); Calc. Creatinine Clearance 181 mL/min (70-130); Calcium 8.3 mg/dL (7.8-10.44); Carbon Dioxide 24 mmol/L (22-29); Chloride 104 mmol/L (98-107); Estimated GFR 90; Glucose 155 mg/dL (70-105); Potassium 3.6 mmol/L (3.5-5.1); Sodium 139 mmol/L (136-145)
[2022-07-28] MEDS: Furosemide 40 MG/4 ML VIAL SLOW IVP SCH ×2 (06:37→14:20)
[2022-07-28] MEDS ORDERED: Dexamethasone 10 MG/ML VIAL SLOW IVP SCH (09:00)
[2022-07-28] MEDS ORDERED: Insulin NPH Human Isophane 100 UNIT/ML (10 ML VIAL) SC SCH ×2 (10:17→10:30)
[2022-07-28] MEDS: Aspirin 81 mg Enteric Coated Tablet PO SCH (10:18)
[2022-07-28] MEDS: Zinc Sulfate 220 MG CAP PO SCH (10:18)
[2022-07-28] MEDS: Sertraline 100 MG TAB PO SCH (10:18)
[2022-07-28] MEDS: Carvedilol 3.125 MG TAB PO SCH ×2 (10:19→18:36)
[2022-07-28] MEDS: Famotidine 20 MG TAB PO SCH ×2 (10:19→20:12)
[2022-07-28] MEDS: Empagliflozin 10 MG TAB PO SCH (10:19)
[2022-07-28] MEDS: GUAIFENESIN SF SOLN 200 MG/10 ML UDCUP PO PRN ×2 (10:24→20:11)
[2022-07-28] MEDS: Dexamethasone 4 mg/ml Vial SLOW IVP SCH (10:25)
[2022-07-28] MEDS: Insulin Regular 300 UNITS/3 ML VIAL SC SCH ×3 (10:27→18:36)
[2022-07-28] MEDS: Spironolactone 25 MG TAB PO SCH (10:31)
[2022-07-28] MEDS: Insulin NPH Human Isophane 100 UNIT/ML (10 ML VIAL) SC SCH ×2 (10:31→20:21)
[2022-07-28] MEDS: HumaLOG 300 UNITS/3 ML VIAL SC PRN ×2 (12:55→18:36)
[2022-07-28] MEDS: Enoxaparin Sodium 40 MG/0.4 ML SYRINGE SC SCH (20:11)
[2022-07-28] MEDS: Atorvastatin Calcium 40 MG TAB PO SCH (20:11)
[2022-07-28] MEDS: REMDESIVIR 100 MG in Sodium Chloride 0.9% 250 ML 230 ML IV SCH (20:16)
[2022-07-29] MEDS: GUAIFENESIN SF SOLN 200 MG/10 ML UDCUP PO PRN ×3 (00:12→22:50)
[2022-07-29] MEDS: HumaLOG 300 UNITS/3 ML VIAL SC PRN (00:13)
[2022-07-29 05:21] LABS: ALT (SGPT) 11 U/L (8-55); AST (SGOT) 22 U/L (5-34); Albumin 3.3 g/dL (3.5-5.0); Alkaline Phosphatase 82 U/L (40-110); Bilirubin, Direct 0.8 mg/dL (0.1-0.3); Bilirubin, Total 1.6 mg/dL (0.2-1.2); Protein, Total 6.6 g/dL (6.0-8.3)
[2022-07-29 05:30] LABS: ALT (SGPT) 12 U/L (8-55); AST (SGOT) 26 U/L (5-34); Albumin 3.4 g/dL (3.5-5.0); Alkaline Phosphatase 82 U/L (40-110); Anion Gap 17 mmol/L (10-20); BUN (Urea Nitrogen) 24 mg/dL (7.0-18.7); Bilirubin, Total 1.6 mg/dL (0.2-1.2); Calc. Creatinine Clearance 175 mL/min (70-130); Calcium 8.1 mg/dL (7.8-10.44); Carbon Dioxide 21 mmol/L (22-29); Chloride 103 mmol/L (98-107); Estimated GFR 89; Globulin 3.3 g/dL (2.4-3.5); Glucose 106 mg/dL (70-105); Potassium 3.6 mmol/L (3.5-5.1); Protein, Total 6.7 g/dL (6.0-8.3); Sodium 137 mmol/L (136-145)
[2022-07-29] MEDS: Furosemide 40 MG/4 ML VIAL SLOW IVP SCH ×2 (05:58→14:55)
[2022-07-29 06:01] LABS: #Basophils 0.1 thou/uL (0.0-0.2); #Lymphocytes 1.6 thou/uL (1.20-3.40); #Monocytes 1.1 thou/uL (0.11-0.59); #Neutrophils 10.5 thou/uL (1.40-6.50); %Basophils 0.9 % (0.0-1.0); %Eosinophils 0.1 % (0.0-10.0); %Lymphocytes 12.2 % (21.0-51.0); %Monocytes 8.1 % (0.0-10.0); %Neutrophils 78.8 % (42.0-75.0); Hemoglobin 12.2 g/dL (12.0-16.0); Mean Corpuscular HGB CONC 31.3 g/dL (32.0-36.0); Mean Corpuscular Hemoglobin 27.6 pg (27.0-31.0); Mean Corpuscular Volume 88.3 fl (78.0-98.0); Mean Platelet Volume 9.8 fL (7.4-10.4); Platelet Count 248 10x3/uL (130-400); RBC Distribution Width 18.2 % (11.5-14.5); Red Blood Cell (RBC) Count 4.44 mill/uL (4.20-5.40); White Blood Cell (WBC) Count 13.3 10x3/uL (4.8-10.8)
[2022-07-29] MEDS: Insulin Regular 300 UNITS/3 ML VIAL SC SCH ×2 (09:22→14:07)
[2022-07-29] MEDS: Sertraline 100 MG TAB PO SCH (09:56)
[2022-07-29] MEDS: Aspirin 81 mg Enteric Coated Tablet PO SCH (09:56)
[2022-07-29] MEDS: Spironolactone 25 MG TAB PO SCH (09:57)
[2022-07-29] MEDS: Famotidine 20 MG TAB PO SCH ×2 (09:57→21:15)
[2022-07-29] MEDS: Empagliflozin 10 MG TAB PO SCH (09:57)
[2022-07-29] MEDS: Zinc Sulfate 220 MG CAP PO SCH (09:57)
[2022-07-29] MEDS: Carvedilol 3.125 MG TAB PO SCH ×2 (09:57→17:59)
[2022-07-29] MEDS: Insulin NPH Human Isophane 100 UNIT/ML (10 ML VIAL) SC SCH (10:05)
[2022-07-29] MEDS: Dexamethasone 4 mg/ml Vial SLOW IVP SCH (10:05)
[2022-07-29] MEDS ORDERED: Azithromycin 250 MG TAB PO SCH ×2 (16:30→17:00)
[2022-07-29] MEDS ORDERED: Insulin NPH Human Isophane 100 UNIT/ML (10 ML VIAL) SC SCH (17:00)
[2022-07-29] MEDS: REMDESIVIR 100 MG in Sodium Chloride 0.9% 250 ML 230 ML IV SCH (21:13)
[2022-07-29] MEDS: Atorvastatin Calcium 40 MG TAB PO SCH (21:15)
[2022-07-29] MEDS: Enoxaparin Sodium 40 MG/0.4 ML SYRINGE SC SCH (21:15)
[2022-07-30 05:24] LABS: #Lymphocytes 1.7 thou/uL (1.20-3.40); #Neutrophils 9.8 thou/uL (1.40-6.50); %Basophils 0.2 % (0.0-1.0); %Eosinophils 0.1 % (0.0-10.0); %Lymphocytes 13.4 % (21.0-51.0); %Monocytes 8.2 % (0.0-10.0); %Neutrophils 78.2 % (42.0-75.0); Hemoglobin 12.6 g/dL (12.0-16.0); Mean Corpuscular HGB CONC 31.7 g/dL (32.0-36.0); Mean Corpuscular Hemoglobin 27.8 pg (27.0-31.0); Mean Corpuscular Volume 87.7 fl (78.0-98.0); Platelet Count 233 10x3/uL (130-400); RBC Distribution Width 18.6 % (11.5-14.5); Red Blood Cell (RBC) Count 4.53 mill/uL (4.20-5.40); White Blood Cell (WBC) Count 12.6 10x3/uL (4.8-10.8)
[2022-07-30 05:31] LABS: ALT (SGPT) 17 U/L (8-55); AST (SGOT) 24 U/L (5-34); Albumin 3.3 g/dL (3.5-5.0); Alkaline Phosphatase 121 U/L (40-110); Anion Gap 15 mmol/L (10-20); BUN (Urea Nitrogen) 29 mg/dL (7.0-18.7); Bilirubin, Total 1.6 mg/dL (0.2-1.2); Calc. Creatinine Clearance 177 mL/min (70-130); Calcium 8.5 mg/dL (7.8-10.44); Carbon Dioxide 25 mmol/L (22-29); Chloride 101 mmol/L (98-107); Estimated GFR 92; Globulin 3.2 g/dL (2.4-3.5); Glucose 157 mg/dL (70-105); Potassium 3.5 mmol/L (3.5-5.1); Protein, Total 6.5 g/dL (6.0-8.3); Sodium 137 mmol/L (136-145)
[2022-07-30 05:36] LABS: ALT (SGPT) 16 U/L (8-55); AST (SGOT) 34 U/L (5-34); Albumin 3.4 g/dL (3.5-5.0); Alkaline Phosphatase 129 U/L (40-110); Bilirubin, Direct 0.8 mg/dL (0.1-0.3); Bilirubin, Total 1.5 mg/dL (0.2-1.2); Protein, Total 6.4 g/dL (6.0-8.3)
[2022-07-30] MEDS ORDERED: Potassium Chloride 20 MEQ TAB PO SCH (08:00)
[2022-07-30] MEDS: Sertraline 100 MG TAB PO SCH (09:32)
[2022-07-30] MEDS: Empagliflozin 10 MG TAB PO SCH (09:32)
[2022-07-30] MEDS: Aspirin 81 mg Enteric Coated Tablet PO SCH (09:32)
[2022-07-30] MEDS: Zinc Sulfate 220 MG CAP PO SCH (09:33)
[2022-07-30] MEDS: Spironolactone 25 MG TAB PO SCH (09:33)
[2022-07-30] MEDS: Carvedilol 3.125 MG TAB PO SCH ×2 (09:33→17:16)
[2022-07-30] MEDS: Azithromycin 250 MG TAB PO SCH (09:33)
[2022-07-30] MEDS: Furosemide 40 MG/4 ML VIAL SLOW IVP SCH (09:34)
[2022-07-30] MEDS: Insulin NPH Human Isophane 100 UNIT/ML (10 ML VIAL) SC SCH ×2 (09:34→22:25)
[2022-07-30] MEDS: Famotidine 20 MG TAB PO SCH ×2 (09:34→22:24)
[2022-07-30] MEDS: Dexamethasone 4 mg/ml Vial SLOW IVP SCH (09:34)
[2022-07-30] MEDS: HumaLOG 300 UNITS/3 ML VIAL SC PRN ×3 (11:59→22:26)
[2022-07-30] MEDS: Atorvastatin Calcium 40 MG TAB PO SCH (22:24)
[2022-07-30] MEDS: Bacitracin-Polymyxin B Opth Oint 3.5 GM TUBE EA EYE SCH (22:24)
[2022-07-30] MEDS: Enoxaparin Sodium 40 MG/0.4 ML SYRINGE SC SCH (22:24)
[2022-07-30] MEDS: REMDESIVIR 100 MG in Sodium Chloride 0.9% 250 ML 230 ML IV SCH (22:25)
[2022-07-30] MEDS: GUAIFENESIN SF SOLN 200 MG/10 ML UDCUP PO PRN (22:27)
[2022-07-31 05:21] LABS: #Basophils 0.1 thou/uL (0.0-0.2); #Monocytes 1.6 thou/uL (0.11-0.59); #Neutrophils 12.1 thou/uL (1.40-6.50); %Basophils 0.4 % (0.0-1.0); %Lymphocytes 12.6 % (21.0-51.0); %Monocytes 10.2 % (0.0-10.0); %Neutrophils 76.7 % (42.0-75.0); Hemoglobin 12.4 g/dL (12.0-16.0); Mean Corpuscular HGB CONC 30.3 g/dL (32.0-36.0); Mean Corpuscular Hemoglobin 27.1 pg (27.0-31.0); Mean Corpuscular Volume 89.3 fl (78.0-98.0); Mean Platelet Volume 9.8 fL (7.4-10.4); Platelet Count 276 10x3/uL (130-400); RBC Distribution Width 18.4 % (11.5-14.5); Red Blood Cell (RBC) Count 4.59 mill/uL (4.20-5.40); White Blood Cell (WBC) Count 15.8 10x3/uL (4.8-10.8)
[2022-07-31 05:23] LABS: ALT (SGPT) 23 U/L (8-55); AST (SGOT) 28 U/L (5-34); Albumin 3.3 g/dL (3.5-5.0); Alkaline Phosphatase 126 U/L (40-110); Anion Gap 13 mmol/L (10-20); BUN (Urea Nitrogen) 29 mg/dL (7.0-18.7); Bilirubin, Total 1.6 mg/dL (0.2-1.2); Calc. Creatinine Clearance 182 mL/min (70-130); Calcium 8.6 mg/dL (7.8-10.44); Carbon Dioxide 26 mmol/L (22-29); Chloride 101 mmol/L (98-107); Estimated GFR 96; Globulin 3.1 g/dL (2.4-3.5); Glucose 101 mg/dL (70-105); Potassium 3.6 mmol/L (3.5-5.1); Protein, Total 6.4 g/dL (6.0-8.3); Sodium 136 mmol/L (136-145)
[2022-07-31] MEDS: Dexamethasone 4 mg/ml Vial SLOW IVP SCH (09:33)
[2022-07-31] MEDS: Bacitracin-Polymyxin B Opth Oint 3.5 GM TUBE EA EYE SCH ×2 (09:33→21:28)
[2022-07-31] MEDS: Insulin NPH Human Isophane 100 UNIT/ML (10 ML VIAL) SC SCH ×2 (09:33→21:28)
[2022-07-31] MEDS: Furosemide 40 MG/4 ML VIAL SLOW IVP SCH (09:33)
[2022-07-31] MEDS: Spironolactone 25 MG TAB PO SCH (09:34)
[2022-07-31] MEDS: Famotidine 20 MG TAB PO SCH ×2 (09:34→21:28)
[2022-07-31] MEDS: Carvedilol 3.125 MG TAB PO SCH ×2 (09:34→16:58)
[2022-07-31] MEDS: Aspirin 81 mg Enteric Coated Tablet PO SCH (09:34)
[2022-07-31] MEDS: Zinc Sulfate 220 MG CAP PO SCH (09:34)
[2022-07-31] MEDS: Sertraline 100 MG TAB PO SCH (09:34)
[2022-07-31] MEDS: Empagliflozin 10 MG TAB PO SCH (09:34)
[2022-07-31] MEDS: Azithromycin 250 MG TAB PO SCH (09:34)
[2022-07-31] MEDS: GUAIFENESIN SF SOLN 200 MG/10 ML UDCUP PO PRN ×3 (09:35→21:27)
[2022-07-31] MEDS ORDERED: Spironolactone 25 MG TAB PO SCH (10:15)
[2022-07-31] MEDS: Albuterol 200 PUFF (6.7GM INHALER) INH SCH (13:38)
[2022-07-31] MEDS: Atorvastatin Calcium 40 MG TAB PO SCH (21:27)
[2022-07-31] MEDS: Enoxaparin Sodium 40 MG/0.4 ML SYRINGE SC SCH (21:28)
[2022-07-31] MEDS: Terazosin HCl 1 MG CAP PO SCH (21:29)
[2022-07-31] MEDS: REMDESIVIR 100 MG in Sodium Chloride 0.9% 250 ML 230 ML IV SCH (21:29)
[2022-08-01 04:42] LABS: ALT (SGPT) 27 U/L (8-55); AST (SGOT) 27 U/L (5-34); Alkaline Phosphatase 135 U/L (40-110); Anion Gap 13 mmol/L (10-20); BUN (Urea Nitrogen) 30 mg/dL (7.0-18.7); Bilirubin, Total 1.4 mg/dL (0.2-1.2); Calc. Creatinine Clearance 181 mL/min (70-130); Calcium 8.4 mg/dL (7.8-10.44); Carbon Dioxide 26 mmol/L (22-29); Chloride 100 mmol/L (98-107); Estimated GFR 96; Globulin 2.8 g/dL (2.4-3.5); Glucose 130 mg/dL (70-105); Potassium 3.3 mmol/L (3.5-5.1); Protein, Total 5.8 g/dL (6.0-8.3); Sodium 136 mmol/L (136-145)
[2022-08-01] MEDS: Albuterol 200 PUFF (6.7GM INHALER) INH SCH ×2 (06:22→06:23)
[2022-08-01] MEDS ORDERED: Potassium Chloride 20 MEQ TAB PO SCH (08:00)
[2022-08-01] MEDS ORDERED: Spironolactone 25 MG TAB PO SCH (08:00)
[2022-08-01] MEDS: Terazosin HCl 1 MG CAP PO SCH (08:57)
[2022-08-01] MEDS: Aspirin 81 mg Enteric Coated Tablet PO SCH (08:57)
[2022-08-01] MEDS: Azithromycin 250 MG TAB PO SCH (08:58)
[2022-08-01] MEDS: Empagliflozin 10 MG TAB PO SCH (08:58)
[2022-08-01] MEDS: Famotidine 20 MG TAB PO SCH (08:58)
[2022-08-01] MEDS: Sertraline 100 MG TAB PO SCH (08:58)
[2022-08-01] MEDS: Zinc Sulfate 220 MG CAP PO SCH (08:58)
[2022-08-01] MEDS: Carvedilol 3.125 MG TAB PO SCH (08:58)
[2022-08-01] MEDS: Furosemide 40 MG/4 ML VIAL SLOW IVP SCH (08:58)
[2022-08-01] MEDS: Dexamethasone 4 mg/ml Vial SLOW IVP SCH (08:59)
[2022-08-01] MEDS: Bacitracin-Polymyxin B Opth Oint 3.5 GM TUBE EA EYE SCH (08:59)
[2022-08-01] MEDS: Insulin NPH Human Isophane 100 UNIT/ML (10 ML VIAL) SC SCH (09:00)
[2022-08-01 12:40] VITALS: BP 139/97; TEMP 97.9
== END 2022-08-01 13:30 | disposition home or self-care (01) | DRG 177 ==
LOC: ERS 20:33 → 2NO 22:22
PROVIDERS: ADMIT Internal Medicine; ATTEND Internal Medicine
PROC: 8E0ZXY6 Isolation (ICD-10-PCS; principal; 2022-07-26)
PROC: XW033E5 Introduction of Remdesivir Anti-infective into Peripheral Vein, Percutaneous Approach, New Technology Group 5 (ICD-10-PCS; 2022-07-27)
DX: U07.1 COVID-19 (principal); I50.23 Acute on chronic systolic (congestive) heart failure; J12.82 Pneumonia due to coronavirus disease 2019; J96.01 Acute respiratory failure with hypoxia; Z68.43 Body mass index [BMI] 50.0-59.9, adult; I11.0 Hypertensive heart disease with heart failure; E78.5 Hyperlipidemia, unspecified; E87.6 Hypokalemia; E83.42 Hypomagnesemia; F41.9 Anxiety disorder, unspecified; F32.A Depression, unspecified; D50.9 Iron deficiency anemia, unspecified; E66.01 Morbid (severe) obesity due to excess calories; E11.65 Type 2 diabetes mellitus with hyperglycemia; Z88.1 Allergy status to other antibiotic agents; Z88.0 Allergy status to penicillin; Z79.4 Long term (current) use of insulin; Z95.810 Presence of automatic (implantable) cardiac defibrillator; Z79.899 Other long term (current) drug therapy; Z79.82 Long term (current) use of aspirin; Z95.1 Presence of aortocoronary bypass graft; Z83.3 Family history of diabetes mellitus; Z87.891 Personal history of nicotine dependence
CPT/HCPCS: 36415; 36416; 71045; 71275; 80048; 80053; 80076; 80306; 83036; 83735; 83880; 84100; 84484; 85025; 85652; 86140; 94640; 96374; 96375; J0248; J1100; J1650; J1815; J1940; J3475; J7050; J7611; Q9967

== ENCOUNTER 2022-08-18 17:37 | Inpatient (IN) | payer MEDICARE, MEDICAID ==
[2022-08-19] MEDS ORDERED: Ondansetron PF 4 MG/2 ML Vial IVP PRN (00:02)
[2022-08-19] MEDS ORDERED: Loperamide HCl 2 MG CAP PO PRN (00:02)
[2022-08-19] MEDS ORDERED: Acetaminophen 650 MG Suppository PR PRN (00:02)
[2022-08-19] MEDS ORDERED: HumaLOG 300 UNITS/3 ML VIAL SC PRN (00:02)
[2022-08-19] MEDS ORDERED: Dextrose 5% in Water 1,000 ML IV PRN (00:02)
[2022-08-19] MEDS ORDERED: Dextrose 50% Abboject 50 ML SYRINGE SLOW IVP PRN (00:02)
[2022-08-19] MEDS ORDERED: Albuterol 200 PUFF (6.7GM INHALER) INH PRN ×2 (00:02→00:44)
[2022-08-19] MEDS ORDERED: Ondansetron ODT 4 MG TAB PO PRN (00:02)
[2022-08-19] MEDS ORDERED: Benzonatate 100 MG CAP PO PRN (00:02)
[2022-08-19] MEDS: Acetaminophen 325 MG TAB PO PRN (00:53)
[2022-08-19] MEDS: HumaLOG 300 UNITS/3 ML VIAL SC PRN ×3 (00:55→17:46)
[2022-08-19] MEDS ORDERED: Magnesium 2 GM/50 ML(in water) 2 GM in Premix Bag 1 BAG IVPB SCH (01:00)
[2022-08-19] MEDS ORDERED: Morphine 2 MG/ML VIAL SLOW IVP SCH (01:15)
[2022-08-19] MEDS ORDERED: cefTRIAXone\\ROCEPHIN 2 GM in Sodium Chloride 0.9% 100 ML IVPB SCH (01:30)
[2022-08-19] MEDS: Ketoconazole 2% Cream 15 gm Tube TOP SCH ×2 (02:31→09:42)
[2022-08-19] MEDS ORDERED: Metoprolol Tartrate 5 MG/5 ML VIAL IVP SCH (04:30)
[2022-08-19 05:39] LABS: ALT (SGPT) 12 U/L (8-55); AST (SGOT) 11 U/L (5-34); Albumin 2.6 g/dL (3.5-5.0); Alkaline Phosphatase 81 U/L (40-110); Anion Gap 17 mmol/L (10-20); BUN (Urea Nitrogen) 18 mg/dL (7.0-18.7); Bilirubin, Total 2.6 mg/dL (0.2-1.2); Calc. Creatinine Clearance 143 mL/min (70-130); Carbon Dioxide 17 mmol/L (22-29); Chloride 98 mmol/L (98-107); Estimated GFR 76; Globulin 3.4 g/dL (2.4-3.5); Glucose 276 mg/dL (70-105); Magnesium 2.1 mg/dL (1.6-2.6); Potassium 3.9 mmol/L (3.5-5.1); Sodium 128 mmol/L (136-145)
[2022-08-19 05:50] LABS: Band 37 % (5-11); Lymphocytes 8 % (21-51); MDiff Complete? YES; Mean Corpuscular HGB CONC 31.5 g/dL (32.0-36.0); Mean Corpuscular Hemoglobin 26.7 pg (27.0-31.0); Mean Corpuscular Volume 84.6 fl (78.0-98.0); Mean Platelet Volume 10.5 fL (7.4-10.4); Monocytes 5 % (0-10); Neutrophil 48 % (42-75); Platelet Count 259 10x3/uL (130-400); Platelet Morphology Comment Appears Adequate; RBC Distribution Width 20.9 % (11.5-14.5); RBC Morphology Normal; Reactive Lymphocytes 2 % (0-10); Red Blood Cell (RBC) Count 5.26 mill/uL (4.20-5.40); White Blood Cell (WBC) Count 9.9 10x3/uL (4.8-10.8)
[2022-08-19] MEDS ORDERED: Furosemide 40 MG/4 ML VIAL SLOW IVP SCH (06:00)
[2022-08-19] MEDS: HYDROcodone/Acetaminophen 5/325 mg Tablet PO PRN ×4 (06:07→23:54)
[2022-08-19] MEDS ORDERED: Spironolactone 25 MG TAB PO SCH (08:00)
[2022-08-19] MEDS: Sertraline 100 MG TAB PO SCH (09:35)
[2022-08-19] MEDS: Empagliflozin 10 MG TAB PO SCH (09:35)
[2022-08-19] MEDS: Terazosin HCl 1 MG CAP PO SCH ×2 (09:41→20:19)
[2022-08-19] MEDS: Aspirin 81 mg Enteric Coated Tablet PO SCH (09:42)
[2022-08-19] MEDS: HumuLIN 70/30 (300 UNITS/3 ML VIAL) SC SCH ×2 (09:57→17:46)
[2022-08-19] MEDS ORDERED: Sodium Chloride 0.9% 500 ML IV SCH (10:45)
[2022-08-19 11:54] LABS: Lactic Acid 3.1 mmol/L (0.5-2.2)
[2022-08-19 17:27] LABS: Clarity Hazy (Clear)
[2022-08-19 17:28] LABS: Bilirubin Unable to Interpret (Negative); Blood, Urine Unable to Interpret (Negative); Glucose, Urine (Dipstick) Unable to Interpret mg/dL (Negative); Ketone, Urine Unable to Interpret mg/dL (Negative); Leukocyte Unable to Interpret Leu/uL (Negative); Nitrite Unable to Interpret (Negative); Protein, Urine (Dipstick) Unable to Interpret mg/dL (Neg-Trace); Specific Gravity, Urine 1.028 (1.002-1.036); Urobilinogen UNABLE TO INTERPRET mg/dL (Less than 2)
[2022-08-19 17:41] LABS: CAUTI Indications for Culture Fever or rigors
[2022-08-19 17:42] LABS: Bacteria/HPF 1+ HPF (None Seen)
[2022-08-19 17:43] LABS: Urine Culture Reflex No No
[2022-08-19] MEDS: Lactated Ringer's 1,000 ML IV SCH (17:45)
[2022-08-19 19:11] LABS: Mean Corpuscular HGB CONC 30.3 g/dL (32.0-36.0); Mean Corpuscular Hemoglobin 26.4 pg (27.0-31.0); Mean Corpuscular Volume 87.1 fl (78.0-98.0); Mean Platelet Volume 10.7 fL (7.4-10.4); Platelet Count 205 10x3/uL (130-400); RBC Distribution Width 20.9 % (11.5-14.5); Red Blood Cell (RBC) Count 4.93 mill/uL (4.20-5.40); White Blood Cell (WBC) Count 10.9 10x3/uL (4.8-10.8)
[2022-08-19 19:29] LABS: Anisocytosis SLIGHT = 6-15 cells (100X) (0-5/hpf); Band 44 % (5-11); Hypochromia SLIGHT = 6-15 cells (100X) (0-5/hpf); Lymphocytes 6 % (21-51); MDiff Complete? YES; Metamyelocyte 3 % (0-0); Monocytes 4 % (0-10); Neutrophil 42 % (42-75); Nucleated RBC 1 % (0); Ovalocytes SLIGHT = 2-5 cells (100X) (0-1/hpf); Platelet Morphology Comment Appears Adequate; Polychromasia SLIGHT = 2-3 cells (100X) (0-2/hpf); Reactive Lymphocytes 1 % (0-10)
[2022-08-19 19:29] LABS: Lactic Acid 2.7 mmol/L (0.5-2.2)
[2022-08-19 19:33] LABS: ALT (SGPT) 14 U/L (8-55); AST (SGOT) 24 U/L (5-34); Albumin 2.1 g/dL (3.5-5.0); Alkaline Phosphatase 81 U/L (40-110); Anion Gap 17 mmol/L (10-20); BUN (Urea Nitrogen) 26 mg/dL (7.0-18.7); Bilirubin, Total 2.7 mg/dL (0.2-1.2); Calc. Creatinine Clearance 97 mL/min (70-130); Calcium 7.9 mg/dL (7.8-10.44); Carbon Dioxide 19 mmol/L (22-29); Chloride 97 mmol/L (98-107); Estimated GFR 84; Globulin 3.6 g/dL (2.4-3.5); Glucose 235 mg/dL (70-105); Protein, Total 5.7 g/dL (6.0-8.3); Sodium 129 mmol/L (136-145)
[2022-08-19] MEDS: Atorvastatin Calcium 40 MG TAB PO SCH (20:19)
[2022-08-19] MEDS: DOBUTamine 500 mg/250 ml 250 ML IVPB SCH (23:42)
[2022-08-20] MEDS: Cefepime 2 GM in Sodium Chloride 0.9% 100 ML IVPB SCH ×3 (00:47→23:09)
[2022-08-20] MEDS ORDERED: Vancomycin 1.5 GRAM/300 ML BAG 1.5 GM in Premix Bag 1 BAG IVPB SCH (01:00)
[2022-08-20] MEDS ORDERED: VANCOMYCIN 2 GRAM/500 ML BAG 2 GM in Premix Bag 1 BAG IVPB SCH (01:00)
[2022-08-20] MEDS ORDERED: Sodium Chloride 0.9% 500 ML IV SCH (03:15)
[2022-08-20] MEDS: HYDROcodone/Acetaminophen 5/325 mg Tablet PO PRN ×3 (04:20→20:35)
[2022-08-20] MEDS: Lactated Ringer's 1,000 ML IV SCH (05:34)
[2022-08-20 05:54] LABS: Lactic Acid 2.2 mmol/L (0.5-2.2)
[2022-08-20 06:02] LABS: ALT (SGPT) 16 U/L (8-55); AST (SGOT) 29 U/L (5-34); Albumin 2.1 g/dL (3.5-5.0); Alkaline Phosphatase 76 U/L (40-110); Anion Gap 13 mmol/L (10-20); BUN (Urea Nitrogen) 24 mg/dL (7.0-18.7); BUN/Creatinine Ratio 31.17; Bilirubin, Total 2.1 mg/dL (0.2-1.2); CRP (Inflammatory) 27.35 mg/dL (= or < 0.5); Calc. Creatinine Clearance 183 mL/min (70-130); Carbon Dioxide 23 mmol/L (22-29); Chloride 98 mmol/L (98-107); Estimated GFR 99; Globulin 3.5 g/dL (2.4-3.5); Glucose 89 mg/dL (70-105); Magnesium 1.9 mg/dL (1.6-2.6); Phosphorus 4.2 mg/dL (2.3-4.7); Potassium 3.5 mmol/L (3.5-5.1); Protein, Total 5.6 g/dL (6.0-8.3); Sodium 130 mmol/L (136-145)
[2022-08-20 06:36] LABS: Anisocytosis SLIGHT = 6-15 cells (100X) (0-5/hpf); Band 34 % (5-11); Lymphocytes 7 % (21-51); MDiff Complete? YES; Mean Corpuscular HGB CONC 30.2 g/dL (32.0-36.0); Mean Corpuscular Hemoglobin 26.4 pg (27.0-31.0); Mean Corpuscular Volume 87.4 fl (78.0-98.0); Mean Platelet Volume 10.4 fL (7.4-10.4); Monocytes 2 % (0-10); Neutrophil 57 % (42-75); Platelet Count 196 10x3/uL (130-400); Platelet Morphology Comment Appears Adequate; Polychromasia SLIGHT = 2-3 cells (100X) (0-2/hpf); RBC Distribution Width 20.3 % (11.5-14.5); Red Blood Cell (RBC) Count 4.55 mill/uL (4.20-5.40); White Blood Cell (WBC) Count 13.5 10x3/uL (4.8-10.8)
[2022-08-20] MEDS: Terazosin HCl 1 MG CAP PO SCH ×2 (08:20→20:36)
[2022-08-20] MEDS: Sertraline 100 MG TAB PO SCH (08:21)
[2022-08-20] MEDS: Ketoconazole 2% Cream 15 gm Tube TOP SCH (08:21)
[2022-08-20] MEDS: Aspirin 81 mg Enteric Coated Tablet PO SCH (08:21)
[2022-08-20] MEDS: HumuLIN 70/30 (300 UNITS/3 ML VIAL) SC SCH ×2 (08:21→16:56)
[2022-08-20] MEDS ORDERED: Vancomycin 1 GM in Premix Bag 1 BAG IVPB SCH (09:00)
[2022-08-20] MEDS: VANCOMYCIN 1.25 GM/250 ML BAG 1.25 GM in Premix Bag 1 BAG IVPB SCH (12:51)
[2022-08-20] MEDS ORDERED: Vancomycin HCl 750 MG in Sodium Chloride 0.9% 250 ML 250 ML IVPB SCH (13:00)
[2022-08-20] MEDS: Atorvastatin Calcium 40 MG TAB PO SCH (20:35)
[2022-08-20] MEDS: Doxycycline 100 MG CAP PO SCH (20:36)
[2022-08-21] MEDS: VANCOMYCIN 1.25 GM/250 ML BAG 1.25 GM in Premix Bag 1 BAG IVPB SCH ×3 (01:09→14:59)
[2022-08-21] MEDS: HYDROcodone/Acetaminophen 5/325 mg Tablet PO PRN ×4 (01:16→20:27)
[2022-08-21] MEDS: DOBUTamine 500 mg/250 ml 250 ML IVPB SCH (03:21)
[2022-08-21 06:15] LABS: Anion Gap 13 mmol/L (10-20); BUN (Urea Nitrogen) 19 mg/dL (7.0-18.7); Calc. Creatinine Clearance 220 mL/min (70-130); Calcium 8.4 mg/dL (7.8-10.44); Carbon Dioxide 19 mmol/L (22-29); Cardiac Risk 4.1 (Less than 4.5); Chloride 98 mmol/L (98-107); Cholesterol 62 mg/dl (< 200 Desired); Estimated GFR 113; Glucose 105 mg/dL (70-105); HDL Cholesterol 15 mg/dL (>60 Neg Risk); LDL Cholesterol, Calculated 27 mg/dL; Potassium 3.4 mmol/L (3.5-5.1); Sodium 127 mmol/L (136-145); Triglycerides 99 mg/dL (Less than 150)
[2022-08-21 06:25] LABS: Band 37 % (5-11); Hemoglobin 11.5 g/dL (12.0-16.0); Lymphocytes 2 % (21-51); MDiff Complete? YES; Mean Corpuscular HGB CONC 30.1 g/dL (32.0-36.0); Mean Corpuscular Volume 86.3 fl (78.0-98.0); Mean Platelet Volume 10.6 fL (7.4-10.4); Monocytes 6 % (0-10); Neutrophil 54 % (42-75); Platelet Count 206 10x3/uL (130-400); Platelet Morphology Comment Appears Adequate; RBC Distribution Width 20.2 % (11.5-14.5); RBC Morphology Normal; Reactive Lymphocytes 1 % (0-10); Red Blood Cell (RBC) Count 4.43 mill/uL (4.20-5.40); White Blood Cell (WBC) Count 16.5 10x3/uL (4.8-10.8)
[2022-08-21] MEDS: DOBUTamine 500 mg/250 ml 500 MG in Premix Bag 1 BAG IVPB SCH (07:45)
[2022-08-21] MEDS: Sertraline 100 MG TAB PO SCH (08:41)
[2022-08-21] MEDS: HumuLIN 70/30 (300 UNITS/3 ML VIAL) SC SCH ×2 (08:41→16:49)
[2022-08-21] MEDS: Doxycycline 100 MG CAP PO SCH ×2 (08:42→20:23)
[2022-08-21] MEDS: Ketoconazole 2% Cream 15 gm Tube TOP SCH (08:42)
[2022-08-21] MEDS: Terazosin HCl 1 MG CAP PO SCH ×2 (08:42→20:23)
[2022-08-21] MEDS: Aspirin 81 mg Enteric Coated Tablet PO SCH (08:42)
[2022-08-21] MEDS ORDERED: Carvedilol 3.125 MG TAB PO SCH (11:45)
[2022-08-21] MEDS: Cefepime 2 GM in Sodium Chloride 0.9% 100 ML IVPB SCH ×2 (12:09→23:43)
[2022-08-21] MEDS ORDERED: Metolazone 5 MG TAB PO SCH (13:00)
[2022-08-21] MEDS: Carvedilol 3.125 MG TAB PO SCH (16:49)
[2022-08-21] MEDS: Atorvastatin Calcium 40 MG TAB PO SCH (20:23)
[2022-08-22] MEDS: HYDROcodone/Acetaminophen 5/325 mg Tablet PO PRN ×4 (00:27→22:35)
[2022-08-22] MEDS: VANCOMYCIN 1.25 GM/250 ML BAG 1.25 GM in Premix Bag 1 BAG IVPB SCH ×2 (02:27→17:16)
[2022-08-22 06:18] LABS: Hemoglobin 11.1 g/dL (12.0-16.0); Mean Corpuscular HGB CONC 29.7 g/dL (32.0-36.0); Mean Corpuscular Hemoglobin 25.9 pg (27.0-31.0); Mean Corpuscular Volume 87.1 fl (78.0-98.0); Mean Platelet Volume 10.4 fL (7.4-10.4); Platelet Count 237 10x3/uL (130-400); RBC Distribution Width 20.1 % (11.5-14.5)
[2022-08-22 06:40] LABS: Anisocytosis SLIGHT = 6-15 cells (100X) (0-5/hpf); Band 12 % (5-11); Lymphocytes 9 % (21-51); MDiff Complete? YES; Metamyelocyte 2 % (0-0); Monocytes 1 % (0-10); Myelocyte 1 % (0-0); Neutrophil 75 % (42-75); Ovalocytes SLIGHT = 2-5 cells (100X) (0-1/hpf); Platelet Morphology Comment Appears Adequate; Polychromasia SLIGHT = 2-3 cells (100X) (0-2/hpf)
[2022-08-22 06:41] LABS: Anion Gap 13 mmol/L (10-20); BUN (Urea Nitrogen) 20 mg/dL (7.0-18.7); Calc. Creatinine Clearance 193 mL/min (70-130); Calcium 8.3 mg/dL (7.8-10.44); Carbon Dioxide 22 mmol/L (22-29); Chloride 98 mmol/L (98-107); Estimated GFR 104; Potassium 3.5 mmol/L (3.5-5.1); Sodium 129 mmol/L (136-145)
[2022-08-22 06:44] LABS: Glucose 56 mg/dL (70-105)
[2022-08-22] MEDS: DOBUTamine 500 mg/250 ml 500 MG in Premix Bag 1 BAG IVPB SCH (07:13)
[2022-08-22] MEDS ORDERED: Furosemide 40 MG/4 ML VIAL SLOW IVP SCH (09:15)
[2022-08-22] MEDS: HumuLIN 70/30 (300 UNITS/3 ML VIAL) SC SCH ×2 (09:34→17:17)
[2022-08-22] MEDS: Terazosin HCl 1 MG CAP PO SCH ×2 (09:36→22:06)
[2022-08-22] MEDS: Carvedilol 3.125 MG TAB PO SCH ×2 (09:37→17:17)
[2022-08-22] MEDS: Sertraline 100 MG TAB PO SCH (09:37)
[2022-08-22] MEDS: Aspirin 81 mg Enteric Coated Tablet PO SCH (09:38)
[2022-08-22] MEDS: Doxycycline 100 MG CAP PO SCH ×2 (09:38→22:06)
[2022-08-22] MEDS: Ketoconazole 2% Cream 15 gm Tube TOP SCH (09:42)
[2022-08-22] MEDS: Cefepime 2 GM in Sodium Chloride 0.9% 100 ML IVPB SCH (12:06)
[2022-08-22] MEDS: Furosemide 40 MG/4 ML VIAL SLOW IVP SCH (15:50)
[2022-08-22] MEDS: Atorvastatin Calcium 40 MG TAB PO SCH (22:06)
[2022-08-23] MEDS: Cefepime 2 GM in Sodium Chloride 0.9% 100 ML IVPB SCH ×2 (00:34→14:18)
[2022-08-23 02:52] LABS: Vancomycin, Trough 32.7 ug/mL
[2022-08-23 03:12] LABS: Anion Gap 16 mmol/L (10-20); BUN (Urea Nitrogen) 21 mg/dL (7.0-18.7); Calc. Creatinine Clearance 181 mL/min (70-130); Calcium 8.3 mg/dL (7.8-10.44); Carbon Dioxide 19 mmol/L (22-29); Chloride 96 mmol/L (98-107); Estimated GFR 96; Glucose 136 mg/dL (70-105); Potassium 3.4 mmol/L (3.5-5.1); Sodium 128 mmol/L (136-145)
[2022-08-23 03:31] LABS: Band 15 % (5-11); Eosinophils 1 % (0-10); Hemoglobin 10.9 g/dL (12.0-16.0); Lymphocytes 2 % (21-51); MDiff Complete? YES; Mean Corpuscular HGB CONC 30.3 g/dL (32.0-36.0); Mean Corpuscular Hemoglobin 26.2 pg (27.0-31.0); Mean Corpuscular Volume 86.6 fl (78.0-98.0); Mean Platelet Volume 10.1 fL (7.4-10.4); Metamyelocyte 1 % (0-0); Monocytes 4 % (0-10); Myelocyte 2 % (0-0); Neutrophil 75 % (42-75); Nucleated RBC 1 % (0); Platelet Count 257 10x3/uL (130-400); RBC Distribution Width 20.1 % (11.5-14.5); Red Blood Cell (RBC) Count 4.15 mill/uL (4.20-5.40); White Blood Cell (WBC) Count 19.2 10x3/uL (4.8-10.8)
[2022-08-23] MEDS: VANCOMYCIN 1.25 GM/250 ML BAG 1.25 GM in Premix Bag 1 BAG IVPB SCH (04:10)
[2022-08-23] MEDS: HYDROcodone/Acetaminophen 5/325 mg Tablet PO PRN ×3 (05:38→20:38)
[2022-08-23] MEDS: Furosemide 40 MG/4 ML VIAL SLOW IVP SCH ×2 (05:39→14:18)
[2022-08-23] MEDS ORDERED: Electrolyte Replacement Protocol 1 EACH FS PRN (06:00)
[2022-08-23 06:26] LABS: Magnesium 1.8 mg/dL (1.6-2.6)
[2022-08-23] MEDS ORDERED: Magnesium 2 GM/50 ML(in water) 2 GM in Premix Bag 1 BAG IVPB SCH (08:00)
[2022-08-23] MEDS ORDERED: Potassium Chloride 20 MEQ TAB PO SCH (08:00)
[2022-08-23] MEDS: Aspirin 81 mg Enteric Coated Tablet PO SCH (08:41)
[2022-08-23] MEDS: Terazosin HCl 1 MG CAP PO SCH ×2 (08:41→20:39)
[2022-08-23] MEDS: Sertraline 100 MG TAB PO SCH (08:41)
[2022-08-23] MEDS: Carvedilol 3.125 MG TAB PO SCH ×2 (08:41→17:08)
[2022-08-23] MEDS: Doxycycline 100 MG CAP PO SCH ×2 (08:42→20:38)
[2022-08-23] MEDS: Ketoconazole 2% Cream 15 gm Tube TOP SCH (08:45)
[2022-08-23] MEDS: DOBUTamine 500 mg/250 ml 500 MG in Premix Bag 1 BAG IVPB SCH (09:20)
[2022-08-23] MEDS: HumuLIN 70/30 (300 UNITS/3 ML VIAL) SC SCH ×2 (09:23→17:19)
[2022-08-23] MEDS ORDERED: VANCOMYCIN 1.25 GM/250 ML BAG 1.25 GM in Premix Bag 1 BAG IVPB SCH (12:00)
[2022-08-23 14:44] LABS: Vancomycin, Random 23.1 ug/mL (See Comment)
[2022-08-23] MEDS: Atorvastatin Calcium 40 MG TAB PO SCH (20:38)
[2022-08-24] MEDS: Cefepime 2 GM in Sodium Chloride 0.9% 100 ML IVPB SCH ×3 (00:35→23:02)
[2022-08-24] MEDS: HYDROcodone/Acetaminophen 5/325 mg Tablet PO PRN ×5 (00:44→23:02)
[2022-08-24] MEDS: Furosemide 40 MG/4 ML VIAL SLOW IVP SCH ×2 (05:10→13:19)
[2022-08-24 05:57] LABS: Vancomycin, Random 16.3 ug/mL (See Comment)
[2022-08-24 06:06] LABS: Magnesium 1.8 mg/dL (1.6-2.6)
[2022-08-24] MEDS: HumuLIN 70/30 (300 UNITS/3 ML VIAL) SC SCH ×2 (08:46→17:10)
[2022-08-24] MEDS: Carvedilol 3.125 MG TAB PO SCH ×2 (08:47→17:11)
[2022-08-24] MEDS: Sertraline 100 MG TAB PO SCH (08:48)
[2022-08-24] MEDS: Doxycycline 100 MG CAP PO SCH ×2 (08:48→21:38)
[2022-08-24] MEDS: Terazosin HCl 1 MG CAP PO SCH ×2 (08:48→21:38)
[2022-08-24] MEDS: Aspirin 81 mg Enteric Coated Tablet PO SCH (08:49)
[2022-08-24] MEDS: Ketoconazole 2% Cream 15 gm Tube TOP SCH (08:50)
[2022-08-24] MEDS ORDERED: Vancomycin 1 GM in Premix Bag 1 BAG IVPB SCH (09:00)
[2022-08-24] MEDS ORDERED: Magnesium 2 GM/50 ML(in water) 2 GM in Premix Bag 1 BAG IVPB SCH (09:15)
[2022-08-24] MEDS: DOBUTamine 500 mg/250 ml 500 MG in Premix Bag 1 BAG IVPB SCH (13:18)
[2022-08-24] MEDS ORDERED: Iopamidol-370 76% 500 ML 1 ML ONE (15:41)
[2022-08-24] MEDS ORDERED: Polyethylene Glycol 3350 17 GM Packet PO PRN (15:50)
[2022-08-24] MEDS: Clindamycin/D5W 900 MG in Premix Bag 1 BAG IVPB SCH (18:13)
[2022-08-24] MEDS: Atorvastatin Calcium 40 MG TAB PO SCH (21:38)
[2022-08-24] MEDS: Senokot S 8.6-50 MG TAB PO SCH (21:38)
[2022-08-25] MEDS: Clindamycin/D5W 900 MG in Premix Bag 1 BAG IVPB SCH ×3 (01:44→18:21)
[2022-08-25] MEDS: Furosemide 40 MG/4 ML VIAL SLOW IVP SCH ×2 (05:27→14:01)
[2022-08-25] MEDS: HYDROcodone/Acetaminophen 5/325 mg Tablet PO PRN ×4 (05:27→23:58)
[2022-08-25 05:48] LABS: Mean Corpuscular HGB CONC 30.1 g/dL (32.0-36.0); Mean Corpuscular Hemoglobin 25.7 pg (27.0-31.0); Mean Corpuscular Volume 85.4 fl (78.0-98.0); Mean Platelet Volume 9.8 fL (7.4-10.4); Platelet Count 333 10x3/uL (130-400); RBC Distribution Width 20.9 % (11.5-14.5); Red Blood Cell (RBC) Count 4.67 mill/uL (4.20-5.40); White Blood Cell (WBC) Count 22.4 10x3/uL (4.8-10.8)
[2022-08-25 05:58] LABS: Anion Gap 13 mmol/L (10-20); BUN (Urea Nitrogen) 18 mg/dL (7.0-18.7); Calc. Creatinine Clearance 176 mL/min (70-130); Calcium 8.6 mg/dL (7.8-10.44); Carbon Dioxide 29 mmol/L (22-29); Chloride 94 mmol/L (98-107); Estimated GFR 94; Glucose 77 mg/dL (70-105); Magnesium 1.7 mg/dL (1.6-2.6); Potassium 2.9 mmol/L (3.5-5.1); Sodium 133 mmol/L (136-145)
[2022-08-25 06:04] LABS: Band 24 % (5-11); Lymphocytes 6 % (21-51); MDiff Complete? YES; Metamyelocyte 2 % (0-0); Monocytes 2 % (0-10); Myelocyte 4 % (0-0); Neutrophil 62 % (42-75); Nucleated RBC 1 % (0)
[2022-08-25] MEDS ORDERED: Magnesium 2 GM/50 ML(in water) 2 GM in Premix Bag 1 BAG IVPB SCH (06:15)
[2022-08-25] MEDS: Potassium Chloride 20 MEQ TAB PO SCH ×2 (06:28→09:20)
[2022-08-25] MEDS: HumuLIN 70/30 (300 UNITS/3 ML VIAL) SC SCH ×2 (07:41→16:43)
[2022-08-25] MEDS: Doxycycline 100 MG CAP PO SCH ×2 (08:44→22:07)
[2022-08-25] MEDS: Carvedilol 3.125 MG TAB PO SCH ×2 (08:45→18:20)
[2022-08-25] MEDS: Sertraline 100 MG TAB PO SCH (09:20)
[2022-08-25] MEDS: Senokot S 8.6-50 MG TAB PO SCH ×2 (09:20→22:08)
[2022-08-25] MEDS: Terazosin HCl 1 MG CAP PO SCH ×2 (09:20→22:08)
[2022-08-25] MEDS: Aspirin 81 mg Enteric Coated Tablet PO SCH (09:22)
[2022-08-25] MEDS: Ketoconazole 2% Cream 15 gm Tube TOP SCH (09:23)
[2022-08-25] MEDS: Cefepime 2 GM in Sodium Chloride 0.9% 100 ML IVPB SCH ×2 (12:48→23:58)
[2022-08-25 15:27] LABS: Potassium 3.5 mmol/L (3.5-5.1)
[2022-08-25] MEDS: Atorvastatin Calcium 40 MG TAB PO SCH (22:07)
[2022-08-26] MEDS: DOBUTamine 500 mg/250 ml 500 MG in Premix Bag 1 BAG IVPB SCH (00:02)
[2022-08-26] MEDS: Clindamycin/D5W 900 MG in Premix Bag 1 BAG IVPB SCH ×4 (01:52→17:17)
[2022-08-26] MEDS: Furosemide 40 MG/4 ML VIAL SLOW IVP SCH ×2 (05:11→14:05)
[2022-08-26 06:17] LABS: Anion Gap 13 mmol/L (10-20); BUN (Urea Nitrogen) 16 mg/dL (7.0-18.7); Calc. Creatinine Clearance 172 mL/min (70-130); Calcium 8.4 mg/dL (7.8-10.44); Carbon Dioxide 29 mmol/L (22-29); Chloride 94 mmol/L (98-107); Estimated GFR 97; Glucose 134 mg/dL (70-105); Magnesium 1.7 mg/dL (1.6-2.6); Potassium 3.3 mmol/L (3.5-5.1); Sodium 133 mmol/L (136-145)
[2022-08-26] MEDS ORDERED: Magnesium 2 GM/50 ML(in water) 2 GM in Premix Bag 1 BAG IVPB SCH (08:00)
[2022-08-26] MEDS ORDERED: Potassium Chloride 20 MEQ TAB PO SCH (08:00)
[2022-08-26 08:25] LABS: Hemoglobin 11.2 g/dL (12.0-16.0); Mean Corpuscular HGB CONC 30.1 g/dL (32.0-36.0); Mean Corpuscular Hemoglobin 25.7 pg (27.0-31.0); Mean Corpuscular Volume 85.4 fl (78.0-98.0); Mean Platelet Volume 9.2 fL (7.4-10.4); Platelet Count 358 10x3/uL (130-400); RBC Distribution Width 20.3 % (11.5-14.5); Red Blood Cell (RBC) Count 4.37 mill/uL (4.20-5.40); White Blood Cell (WBC) Count 21.3 10x3/uL (4.8-10.8)
[2022-08-26] MEDS: Carvedilol 3.125 MG TAB PO SCH ×2 (09:12→17:17)
[2022-08-26] MEDS: Terazosin HCl 1 MG CAP PO SCH (09:12)
[2022-08-26] MEDS: Saccharomyces boulardii 250 MG CAP PO SCH (09:12)
[2022-08-26] MEDS: Doxycycline 100 MG CAP PO SCH ×2 (09:13→21:06)
[2022-08-26] MEDS: HumuLIN 70/30 (300 UNITS/3 ML VIAL) SC SCH ×3 (09:13→17:17)
[2022-08-26] MEDS: Senokot S 8.6-50 MG TAB PO SCH ×2 (09:13→21:08)
[2022-08-26] MEDS: Sertraline 100 MG TAB PO SCH (09:13)
[2022-08-26] MEDS: Empagliflozin 10 MG TAB PO SCH (09:13)
[2022-08-26] MEDS: Aspirin 81 mg Enteric Coated Tablet PO SCH (09:13)
[2022-08-26] MEDS: Ketoconazole 2% Cream 15 gm Tube TOP SCH (09:15)
[2022-08-26] MEDS: HYDROcodone/Acetaminophen 5/325 mg Tablet PO PRN ×2 (09:16→21:06)
[2022-08-26 11:16] LABS: Band 28 % (5-11); Eosinophils 1 % (0-10); Lymphocytes 5 % (21-51); MDiff Complete? YES; Metamyelocyte 2 % (0-0); Monocytes 5 % (0-10); Myelocyte 2 % (0-0); Neutrophil 57 % (42-75); Platelet Morphology Comment Appears Adequate; Polychromasia SLIGHT = 2-3 cells (100X) (0-2/hpf); Toxic Granulation SLIGHT
[2022-08-26] MEDS: Cefepime 2 GM in Sodium Chloride 0.9% 100 ML IVPB SCH (11:33)
[2022-08-26] MEDS: Atorvastatin Calcium 40 MG TAB PO SCH (21:06)
[2022-08-27] MEDS: Clindamycin/D5W 900 MG in Premix Bag 1 BAG IVPB SCH ×3 (01:55→18:04)
[2022-08-27] MEDS: DOBUTamine 500 mg/250 ml 500 MG in Premix Bag 1 BAG IVPB SCH (05:25)
[2022-08-27] MEDS: Furosemide 40 MG/4 ML VIAL SLOW IVP SCH ×2 (05:25→14:32)
[2022-08-27] MEDS: HYDROcodone/Acetaminophen 5/325 mg Tablet PO PRN ×3 (05:26→21:11)
[2022-08-27 05:42] LABS: Mean Corpuscular HGB CONC 29.9 g/dL (32.0-36.0); Mean Corpuscular Hemoglobin 25.4 pg (27.0-31.0); Mean Corpuscular Volume 85.2 fl (78.0-98.0); Mean Platelet Volume 9.1 fL (7.4-10.4); Platelet Count 370 10x3/uL (130-400); RBC Distribution Width 20.6 % (11.5-14.5); Red Blood Cell (RBC) Count 4.34 mill/uL (4.20-5.40); White Blood Cell (WBC) Count 19.3 10x3/uL (4.8-10.8)
[2022-08-27 05:50] LABS: Anion Gap 13 mmol/L (10-20); BUN (Urea Nitrogen) 17 mg/dL (7.0-18.7); Calc. Creatinine Clearance 175 mL/min (70-130); Calcium 8.4 mg/dL (7.8-10.44); Carbon Dioxide 31 mmol/L (22-29); Chloride 93 mmol/L (98-107); Estimated GFR 99; Glucose 137 mg/dL (70-105); Potassium 3.3 mmol/L (3.5-5.1); Sodium 134 mmol/L (136-145)
[2022-08-27 06:25] LABS: Band 25 % (5-11); Lymphocytes 6 % (21-51); MDiff Complete? YES; Metamyelocyte 4 % (0-0); Monocytes 4 % (0-10); Myelocyte 8 % (0-0); Neutrophil 53 % (42-75)
[2022-08-27] MEDS: HumuLIN 70/30 (300 UNITS/3 ML VIAL) SC SCH ×2 (07:27→16:50)
[2022-08-27] MEDS ORDERED: Potassium Chloride 20 MEQ TAB PO SCH (08:00)
[2022-08-27] MEDS: Sertraline 100 MG TAB PO SCH (10:16)
[2022-08-27] MEDS: Saccharomyces boulardii 250 MG CAP PO SCH (10:16)
[2022-08-27] MEDS: Doxycycline 100 MG CAP PO SCH ×2 (10:17→20:51)
[2022-08-27] MEDS: Aspirin 81 mg Enteric Coated Tablet PO SCH (10:17)
[2022-08-27] MEDS: Empagliflozin 10 MG TAB PO SCH (10:17)
[2022-08-27] MEDS: Carvedilol 3.125 MG TAB PO SCH ×2 (10:18→16:49)
[2022-08-27] MEDS: Ketoconazole 2% Cream 15 gm Tube TOP SCH (10:18)
[2022-08-27] MEDS: Senokot S 8.6-50 MG TAB PO SCH ×2 (10:20→20:51)
[2022-08-27 17:04] VITALS: BMI 52.0
[2022-08-27] MEDS: Atorvastatin Calcium 40 MG TAB PO SCH (20:51)
[2022-08-28] MEDS: Clindamycin/D5W 900 MG in Premix Bag 1 BAG IVPB SCH ×3 (02:05→18:24)
[2022-08-28] MEDS: HYDROcodone/Acetaminophen 5/325 mg Tablet PO PRN ×3 (02:09→13:27)
[2022-08-28] MEDS: Furosemide 40 MG/4 ML VIAL SLOW IVP SCH ×2 (05:08→13:26)
[2022-08-28 06:49] LABS: Hemoglobin 11.2 g/dL (12.0-16.0); Mean Corpuscular HGB CONC 29.9 g/dL (32.0-36.0); Mean Corpuscular Hemoglobin 25.6 pg (27.0-31.0); Mean Corpuscular Volume 85.6 fl (78.0-98.0); Mean Platelet Volume 8.7 fL (7.4-10.4); Platelet Count 391 10x3/uL (130-400); RBC Distribution Width 20.8 % (11.5-14.5); Red Blood Cell (RBC) Count 4.38 mill/uL (4.20-5.40); White Blood Cell (WBC) Count 22.4 10x3/uL (4.8-10.8)
[2022-08-28 06:50] LABS: Anion Gap 15 mmol/L (10-20); BUN (Urea Nitrogen) 15 mg/dL (7.0-18.7); Calc. Creatinine Clearance 166 mL/min (70-130); Calcium 8.6 mg/dL (7.8-10.44); Carbon Dioxide 32 mmol/L (22-29); Chloride 92 mmol/L (98-107); Estimated GFR 96; Glucose 87 mg/dL (70-105); Potassium 3.3 mmol/L (3.5-5.1); Sodium 136 mmol/L (136-145)
[2022-08-28] MEDS ORDERED: Potassium Chloride 20 MEQ TAB PO SCH (08:00)
[2022-08-28 08:16] LABS: Band 5 % (5-11); Eosinophils 1 % (0-10); Lymphocytes 7 % (21-51); MDiff Complete? YES; Monocytes 5 % (0-10); Neutrophil 81 % (42-75); Platelet Morphology Comment Appears Adequate; Polychromasia SLIGHT = 2-3 cells (100X) (0-2/hpf)
[2022-08-28] MEDS: HumuLIN 70/30 (300 UNITS/3 ML VIAL) SC SCH ×3 (09:02→18:23)
[2022-08-28] MEDS: Empagliflozin 10 MG TAB PO SCH (09:05)
[2022-08-28] MEDS: Aspirin 81 mg Enteric Coated Tablet PO SCH (09:06)
[2022-08-28] MEDS: Doxycycline 100 MG CAP PO SCH ×2 (09:06→21:14)
[2022-08-28] MEDS: Sertraline 100 MG TAB PO SCH (09:06)
[2022-08-28] MEDS: Senokot S 8.6-50 MG TAB PO SCH ×2 (09:06→21:14)
[2022-08-28] MEDS: Saccharomyces boulardii 250 MG CAP PO SCH (09:06)
[2022-08-28] MEDS: Carvedilol 3.125 MG TAB PO SCH ×2 (09:08→18:23)
[2022-08-28] MEDS: DOBUTamine 500 mg/250 ml 500 MG in Premix Bag 1 BAG IVPB SCH (09:11)
[2022-08-28] MEDS: Ketoconazole 2% Cream 15 gm Tube TOP SCH (09:11)
[2022-08-28] MEDS: HumaLOG 300 UNITS/3 ML VIAL SC PRN (13:26)
[2022-08-28] MEDS: Morphine 2 MG/ML VIAL SLOW IVP PRN ×2 (16:11→21:14)
[2022-08-28 18:53] LABS: Potassium 3.7 mmol/L (3.5-5.1)
[2022-08-28] MEDS: Atorvastatin Calcium 40 MG TAB PO SCH (21:14)
[2022-08-29] MEDS: Clindamycin/D5W 900 MG in Premix Bag 1 BAG IVPB SCH ×3 (01:27→17:42)
[2022-08-29] MEDS: HYDROcodone/Acetaminophen 5/325 mg Tablet PO PRN ×3 (04:34→23:16)
[2022-08-29 05:31] LABS: #Eosinphils 0.1 thou/uL (0.0-0.7); #Lymphocytes 1.7 thou/uL (1.20-3.40); #Monocytes 1.7 thou/uL (0.11-0.59); #Neutrophils 18.4 thou/uL (1.40-6.50); %Basophils 0.1 % (0.0-1.0); %Eosinophils 0.6 % (0.0-10.0); %Lymphocytes 7.9 % (21.0-51.0); %Monocytes 7.7 % (0.0-10.0); %Neutrophils 83.8 % (42.0-75.0); Hemoglobin 11.4 g/dL (12.0-16.0); Mean Corpuscular HGB CONC 31.4 g/dL (32.0-36.0); Mean Corpuscular Hemoglobin 27.1 pg (27.0-31.0); Mean Corpuscular Volume 86.5 fl (78.0-98.0); Mean Platelet Volume 8.5 fL (7.4-10.4); Platelet Count 395 10x3/uL (130-400); RBC Distribution Width 20.9 % (11.5-14.5); Red Blood Cell (RBC) Count 4.19 mill/uL (4.20-5.40); White Blood Cell (WBC) Count 21.9 10x3/uL (4.8-10.8)
[2022-08-29 05:50] LABS: Anion Gap 15 mmol/L (10-20); BUN (Urea Nitrogen) 16 mg/dL (7.0-18.7); Calc. Creatinine Clearance 162 mL/min (70-130); Calcium 8.6 mg/dL (7.8-10.44); Carbon Dioxide 32 mmol/L (22-29); Chloride 92 mmol/L (98-107); Estimated GFR 93; Glucose 148 mg/dL (70-105); Potassium 3.5 mmol/L (3.5-5.1); Sodium 135 mmol/L (136-145)
[2022-08-29] MEDS: Furosemide 40 MG/4 ML VIAL SLOW IVP SCH ×2 (06:34→13:29)
[2022-08-29] MEDS ORDERED: Potassium Chloride 20 MEQ TAB PO SCH ×2 (08:00)
[2022-08-29] MEDS: Saccharomyces boulardii 250 MG CAP PO SCH (10:11)
[2022-08-29] MEDS: Aspirin 81 mg Enteric Coated Tablet PO SCH (10:11)
[2022-08-29] MEDS: Carvedilol 3.125 MG TAB PO SCH (10:11)
[2022-08-29] MEDS: Doxycycline 100 MG CAP PO SCH ×2 (10:15→21:28)
[2022-08-29] MEDS: Empagliflozin 10 MG TAB PO SCH (10:16)
[2022-08-29] MEDS: Senokot S 8.6-50 MG TAB PO SCH ×3 (10:17→21:30)
[2022-08-29] MEDS: Ketoconazole 2% Cream 15 gm Tube TOP SCH (10:18)
[2022-08-29] MEDS: HumuLIN 70/30 (300 UNITS/3 ML VIAL) SC SCH ×2 (10:19→17:42)
[2022-08-29] MEDS: Sertraline 100 MG TAB PO SCH (10:28)
[2022-08-29] MEDS: Morphine 2 MG/ML VIAL SLOW IVP PRN (13:29)
[2022-08-29] MEDS ORDERED: Carvedilol 3.125 MG TAB PO SCH (17:00)
[2022-08-29] MEDS ORDERED: Lisinopril 2.5 MG TAB PO SCH (21:00)
[2022-08-29] MEDS: Atorvastatin Calcium 40 MG TAB PO SCH (21:28)
[2022-08-29] MEDS: Acetaminophen 325 MG TAB PO PRN (21:38)
[2022-08-29 23:48] VITALS: BP 111/72; TEMP 97.2
== END 2022-08-30 02:05 | disposition short-term general hospital (02) | DRG 871 ==
LOC: NEURO 17:37
PROVIDERS: ADMIT Internal Medicine; ATTEND Family Medicine
PROC: 3E03329 Introduction of Other Anti-infective into Peripheral Vein, Percutaneous Approach (ICD-10-PCS; 2022-08-18)
PROC: 02HV33Z Insertion of Infusion Device into Superior Vena Cava, Percutaneous Approach (ICD-10-PCS; principal; 2022-08-23)
PROC: B548ZZA Ultrasonography of Superior Vena Cava, Guidance (ICD-10-PCS; 2022-08-23)
PROC: B5181ZA Fluoroscopy of Superior Vena Cava using Low Osmolar Contrast, Guidance (ICD-10-PCS; 2022-08-23)
DX: A41.9 Sepsis, unspecified organism (principal); I50.23 Acute on chronic systolic (congestive) heart failure; U07.1 COVID-19; J96.01 Acute respiratory failure with hypoxia; E87.20 Acidosis, unspecified; E87.1 Hypo-osmolality and hyponatremia; Z68.43 Body mass index [BMI] 50.0-59.9, adult; I42.0 Dilated cardiomyopathy; L30.4 Erythema intertrigo; E11.65 Type 2 diabetes mellitus with hyperglycemia; E78.5 Hyperlipidemia, unspecified; I25.10 Atherosclerotic heart disease of native coronary artery without angina pectoris; E66.01 Morbid (severe) obesity due to excess calories; I25.5 Ischemic cardiomyopathy; N83.8 Other noninflammatory disorders of ovary, fallopian tube and broad ligament; E11.9 Type 2 diabetes mellitus without complications; I10 Essential (primary) hypertension; Z95.810 Presence of automatic (implantable) cardiac defibrillator; Z95.1 Presence of aortocoronary bypass graft; Z88.0 Allergy status to penicillin; Z88.1 Allergy status to other antibiotic agents; Z79.4 Long term (current) use of insulin; Z79.899 Other long term (current) drug therapy; Z79.82 Long term (current) use of aspirin; Z83.3 Family history of diabetes mellitus
CPT/HCPCS: 36415; 36416; 36569; 74176; 74177; 80048; 80053; 80061; 80069; 80202; 81001; 83605; 83735; 83880; 85025; 86140; 86304; 87040; 87086; 97139; C1751; J0692; J0696; J1250; J1650; J1815; J1940; J2272; J3370; J3370-JW; J3475; J3490; J7030; J7050; J7120; Q9967

== ENCOUNTER 2022-10-23 15:20 | Inpatient (IN) | payer MEDICARE, MEDICAID ==
[2022-10-23 16:09] LABS: Actual Bicarbonate (HCO3v) 29 mEq/L (22-28); Analyzer IN Cardio ER; Base Excess 4.7 mEq/L (-2.0 to +3.0); Calcium, Ionized (venous) 1.13 mmol/L (1.16-1.32); Chloride (VBG) 99 mmol/L (98-106); Potassium (VBG) 3.27 mmol/L (3.70-5.30); Sodium 138.2 mmol/L (133-146); pH (venous) 7.46 (7.32-7.43)
[2022-10-23 16:18] LABS: #Eosinphils 0.5 thou/uL (0.0-0.7); #Lymphocytes 1.6 thou/uL (1.20-3.40); #Monocytes 0.9 thou/uL (0.11-0.59); #Neutrophils 9.6 thou/uL (1.40-6.50); %Basophils 0.3 % (0.0-1.0); %Lymphocytes 12.7 % (21.0-51.0); %Neutrophils 76.2 % (42.0-75.0); Hemoglobin 12.7 g/dL (12.0-16.0); Mean Corpuscular Hemoglobin 25.9 pg (27.0-31.0); Mean Corpuscular Volume 83.4 fl (78.0-98.0); Mean Platelet Volume 8.1 fL (7.4-10.4); Platelet Count 547 10x3/uL (130-400); RBC Distribution Width 21.3 % (11.5-14.5); Red Blood Cell (RBC) Count 4.92 mill/uL (4.20-5.40); White Blood Cell (WBC) Count 12.6 10x3/uL (4.8-10.8)
[2022-10-23] MEDS ORDERED: Morphine 4 MG/ML VIAL ONE (16:41)
[2022-10-23 16:47] LABS: ALT (SGPT) 19 U/L (8-55); AST (SGOT) 51 U/L (5-34); Albumin 3.4 g/dL (3.5-5.0); Alkaline Phosphatase 105 U/L (40-110); Anion Gap 14 mmol/L (10-20); BUN (Urea Nitrogen) 11 mg/dL (7.0-18.7); Bilirubin, Total 1.2 mg/dL (0.2-1.2); Calc. Creatinine Clearance 0 mL/min (70-130); Calcium 9.5 mg/dL (7.8-10.44); Carbon Dioxide 25 mmol/L (22-29); Chloride 100 mmol/L (98-107); Estimated GFR 64; Globulin 5.5 g/dL (2.4-3.5); Glucose 163 mg/dL (70-105); Potassium 3.4 mmol/L (3.5-5.1); Protein, Total 8.9 g/dL (6.0-8.3); Sodium 136 mmol/L (136-145)
[2022-10-23 17:00] LABS: CKMB 8.3 ng/mL (0-6.6)
[2022-10-23] MEDS ORDERED: Ondansetron PF 4 MG/2 ML Vial IVP PRN (18:09)
[2022-10-23] MEDS ORDERED: Potassium Chloride 40 MEQ in Premix Bag 1 BAG IVPB SCH (18:15)
[2022-10-23] MEDS ORDERED: Dextrose 50% Abboject 50 ML SYRINGE SLOW IVP PRN (18:31)
[2022-10-23] MEDS ORDERED: Dextrose 5% in Water 1,000 ML IV PRN (18:31)
[2022-10-23 19:41] LABS: Troponin I 0.036 ng/mL (< 0.028)
[2022-10-23 19:43] LABS: Magnesium 1.8 mg/dL (1.6-2.6)
[2022-10-23] MEDS: Potassium Chloride 20 MEQ in Premix Bag 1 BAG IVPB SCH ×2 (20:28→22:47)
[2022-10-23] MEDS: Acetaminophen 325 MG TAB PO PRN (20:28)
[2022-10-23] MEDS: Atorvastatin Calcium 40 MG TAB PO SCH (20:28)
[2022-10-23 20:55] VITALS: BMI 40.4
[2022-10-23] MEDS: Cefepime 2 GM in Sodium Chloride 0.9% 100 ML IVPB SCH (21:41)
[2022-10-23] MEDS ORDERED: Vancomycin 1.5 GRAM/300 ML BAG 1.5 GM in Premix Bag 1 BAG IVPB SCH (22:00)
[2022-10-23] MEDS: Morphine 2 MG/ML VIAL SLOW IVP PRN (22:46)
[2022-10-24] MEDS: Morphine 2 MG/ML VIAL SLOW IVP PRN ×5 (03:25→21:30)
[2022-10-24 04:10] LABS: #Basophils 0.1 thou/uL (0.0-0.2); #Eosinphils 0.8 thou/uL (0.0-0.7); #Lymphocytes 1.8 thou/uL (1.20-3.40); #Neutrophils 7.5 thou/uL (1.40-6.50); %Basophils 0.8 % (0.0-1.0); %Eosinophils 7.1 % (0.0-10.0); %Lymphocytes 16.2 % (21.0-51.0); %Monocytes 8.9 % (0.0-10.0); %Neutrophils 67.1 % (42.0-75.0); Hemoglobin 12.9 g/dL (12.0-16.0); Mean Corpuscular HGB CONC 30.5 g/dL (32.0-36.0); Mean Corpuscular Hemoglobin 25.7 pg (27.0-31.0); Mean Corpuscular Volume 84.3 fl (78.0-98.0); Mean Platelet Volume 8.3 fL (7.4-10.4); Platelet Count 507 10x3/uL (130-400); RBC Distribution Width 20.9 % (11.5-14.5); Red Blood Cell (RBC) Count 5.01 mill/uL (4.20-5.40); White Blood Cell (WBC) Count 11.1 10x3/uL (4.8-10.8)
[2022-10-24 04:31] LABS: ALT (SGPT) 21 U/L (8-55); AST (SGOT) 59 U/L (5-34); Albumin 2.8 g/dL (3.5-5.0); Alkaline Phosphatase 94 U/L (40-110); Bilirubin, Direct 0.5 mg/dL (0.1-0.3); Bilirubin, Total 0.8 mg/dL (0.2-1.2); Protein, Total 7.9 g/dL (6.0-8.3)
[2022-10-24 04:32] LABS: Anion Gap 13 mmol/L (10-20); BUN (Urea Nitrogen) 11 mg/dL (7.0-18.7); Calc. Creatinine Clearance 108 mL/min (70-130); Calcium 8.9 mg/dL (7.8-10.44); Carbon Dioxide 22 mmol/L (22-29); Chloride 103 mmol/L (98-107); Estimated GFR 75; Glucose 139 mg/dL (70-105); Magnesium 1.8 mg/dL (1.6-2.6); Potassium 3.4 mmol/L (3.5-5.1); Sodium 135 mmol/L (136-145)
[2022-10-24] MEDS: Gabapentin 100 MG CAP PO SCH ×3 (08:14→15:33)
[2022-10-24] MEDS: Spironolactone 25 MG TAB PO SCH (08:15)
[2022-10-24] MEDS: Sertraline 100 MG TAB PO SCH (08:15)
[2022-10-24] MEDS: Acetaminophen 325 MG TAB PO PRN (08:15)
[2022-10-24] MEDS: Cefepime 2 GM in Sodium Chloride 0.9% 100 ML IVPB SCH ×2 (08:16→20:48)
[2022-10-24] MEDS: Vancomycin 1 GM in Premix Bag 1 BAG IVPB SCH ×2 (08:16→21:00)
[2022-10-24] MEDS: Torsemide 20 MG TAB PO SCH (08:16)
[2022-10-24] MEDS: Carvedilol 3.125 MG TAB PO SCH ×2 (08:16→15:33)
[2022-10-24] MEDS ORDERED: fentaNYL PF 100 MCG/2 ML SYRINGE ONE (12:42)
[2022-10-24] MEDS ORDERED: GLYCOPYRROLATE/PF 0.2 MG/ML VIAL ONE (13:28)
[2022-10-24] MEDS ORDERED: Rocuronium Bromide 10 MG/ML (10ML VIAL) ONE (13:28)
[2022-10-24] MEDS ORDERED: Phenylephrine 10 MG/ML VIAL ONE (13:28)
[2022-10-24] MEDS ORDERED: Lidocaine 1% PF 5 ML VIAL ONE (13:28)
[2022-10-24] MEDS ORDERED: NEOSTIGMINE 3 MG/3 ML SYR 3 MG/3 ML SYRINGE ONE (13:28)
[2022-10-24] MEDS ORDERED: PROPOFOL 200 MG/20 ML VIAL ONE (13:28)
[2022-10-24] MEDS ORDERED: Ondansetron PF 4 MG/2 ML Vial ONE (13:28)
[2022-10-24] MEDS ORDERED: Promethazine HCl 25 MG/ML VIAL IM PRN (14:32)
[2022-10-24] MEDS ORDERED: Ondansetron HCl/PF 4 MG/2 ML Vial IVP PRN (14:32)
[2022-10-24] MEDS: Atorvastatin Calcium 40 MG TAB PO SCH (20:45)
[2022-10-24] MEDS: Insulin Glargine 30 UNITS/0.3 ML VIAL SC SCH (20:46)
[2022-10-24] MEDS: HumaLOG 300 UNITS/3 ML VIAL SC PRN (20:47)
[2022-10-25 05:09] LABS: Anion Gap 16 mmol/L (10-20); BUN (Urea Nitrogen) 15 mg/dL (7.0-18.7); Calc. Creatinine Clearance 106 mL/min (70-130); Calcium 9.1 mg/dL (7.8-10.44); Carbon Dioxide 24 mmol/L (22-29); Chloride 99 mmol/L (98-107); Estimated GFR 73; Glucose 173 mg/dL (70-105); Magnesium 1.8 mg/dL (1.6-2.6); Potassium 3.8 mmol/L (3.5-5.1); Sodium 135 mmol/L (136-145)
[2022-10-25] MEDS: Morphine 2 MG/ML VIAL SLOW IVP PRN ×5 (05:10→21:51)
[2022-10-25 05:28] LABS: #Lymphocytes 1.4 thou/uL (1.20-3.40); #Monocytes 1.3 thou/uL (0.11-0.59); #Neutrophils 8.4 thou/uL (1.40-6.50); %Basophils 0.2 % (0.0-1.0); %Eosinophils 8.1 % (0.0-10.0); %Lymphocytes 11.7 % (21.0-51.0); %Monocytes 10.5 % (0.0-10.0); %Neutrophils 69.5 % (42.0-75.0); Anisocytosis MODERATE=16-30 cells (100X) (0-5/hpf); Hemoglobin 12.6 g/dL (12.0-16.0); MDiff Complete? YES; Mean Corpuscular HGB CONC 30.9 g/dL (32.0-36.0); Mean Corpuscular Hemoglobin 26.3 pg (27.0-31.0); Mean Corpuscular Volume 84.9 fl (78.0-98.0); Mean Platelet Volume 8.5 fL (7.4-10.4); Platelet Count 476 10x3/uL (130-400); Platelet Morphology Comment Appears Increased; RBC Distribution Width 21.3 % (11.5-14.5); Tear Drops SLIGHT = 2-5 cells (100X) (0-1/hpf)
[2022-10-25] MEDS: HumaLOG 300 UNITS/3 ML VIAL SC PRN (05:57)
[2022-10-25] MEDS: Gabapentin 100 MG CAP PO SCH ×3 (09:48→19:43)
[2022-10-25] MEDS: Spironolactone 25 MG TAB PO SCH (09:49)
[2022-10-25] MEDS: Sertraline 100 MG TAB PO SCH (09:50)
[2022-10-25] MEDS: Torsemide 20 MG TAB PO SCH (09:51)
[2022-10-25] MEDS: Carvedilol 3.125 MG TAB PO SCH ×2 (09:51→18:02)
[2022-10-25] MEDS: Cefepime 2 GM in Sodium Chloride 0.9% 100 ML IVPB SCH ×2 (09:58→21:37)
[2022-10-25] MEDS: Vancomycin 1 GM in Premix Bag 1 BAG IVPB SCH (09:59)
[2022-10-25 10:10] LABS: Vancomycin, Trough 22.2 ug/mL
[2022-10-25] MEDS: Insulin Glargine 30 UNITS/0.3 ML VIAL SC SCH (19:43)
[2022-10-25] MEDS: Atorvastatin Calcium 40 MG TAB PO SCH (19:43)
[2022-10-25] MEDS: Vancomycin HCl 750 MG in Sodium Chloride 0.9% 250 ML 250 ML IVPB SCH (22:18)
[2022-10-26] MEDS: Morphine 2 MG/ML VIAL SLOW IVP PRN ×3 (02:20→21:45)
[2022-10-26] MEDS: HumaLOG 300 UNITS/3 ML VIAL SC PRN ×2 (06:24→13:23)
[2022-10-26 07:42] LABS: #Eosinphils 1.1 thou/uL (0.0-0.7); #Lymphocytes 1.7 thou/uL (1.20-3.40); #Neutrophils 8.6 thou/uL (1.40-6.50); %Basophils 0.4 % (0.0-1.0); %Lymphocytes 13.6 % (21.0-51.0); %Monocytes 8.2 % (0.0-10.0); %Neutrophils 68.9 % (42.0-75.0); Hemoglobin 12.8 g/dL (12.0-16.0); Mean Corpuscular HGB CONC 30.5 g/dL (32.0-36.0); Mean Corpuscular Hemoglobin 25.7 pg (27.0-31.0); Mean Corpuscular Volume 84.3 fl (78.0-98.0); Mean Platelet Volume 8.5 fL (7.4-10.4); Platelet Count 466 10x3/uL (130-400); RBC Distribution Width 20.8 % (11.5-14.5); Red Blood Cell (RBC) Count 4.99 mill/uL (4.20-5.40); White Blood Cell (WBC) Count 12.5 10x3/uL (4.8-10.8)
[2022-10-26 08:02] LABS: Anion Gap 13 mmol/L (10-20); BUN (Urea Nitrogen) 15 mg/dL (7.0-18.7); Calc. Creatinine Clearance 144 mL/min (70-130); Calcium 9.2 mg/dL (7.8-10.44); Carbon Dioxide 23 mmol/L (22-29); Chloride 100 mmol/L (98-107); Estimated GFR 105; Glucose 138 mg/dL (70-105); Magnesium 1.7 mg/dL (1.6-2.6); Potassium 3.6 mmol/L (3.5-5.1); Sodium 132 mmol/L (136-145)
[2022-10-26] MEDS: Carvedilol 3.125 MG TAB PO SCH ×2 (09:03→16:31)
[2022-10-26] MEDS: Sertraline 100 MG TAB PO SCH (09:03)
[2022-10-26] MEDS: Torsemide 20 MG TAB PO SCH (09:04)
[2022-10-26] MEDS: Gabapentin 100 MG CAP PO SCH (09:04)
[2022-10-26] MEDS: Cefepime 2 GM in Sodium Chloride 0.9% 100 ML IVPB SCH ×2 (09:04→21:37)
[2022-10-26] MEDS: Spironolactone 25 MG TAB PO SCH (09:04)
[2022-10-26] MEDS: Vancomycin HCl 750 MG in Sodium Chloride 0.9% 250 ML 250 ML IVPB SCH ×2 (10:16→22:25)
[2022-10-26] MEDS ORDERED: HYDROcodone/Acetaminophen 5/325 mg Tablet PO PRN (11:47)
[2022-10-26] MEDS ORDERED: Ketorolac Tromethamine 30 MG/ML VIAL IVP SCH (12:00)
[2022-10-26] MEDS ORDERED: HYDROcodone/Acetaminophen 5/325 mg Tablet PO SCH (12:00)
[2022-10-26] MEDS: Gabapentin 300 MG CAP PO SCH ×2 (16:31→20:27)
[2022-10-26] MEDS: Atorvastatin Calcium 40 MG TAB PO SCH (20:27)
[2022-10-26] MEDS: Insulin Glargine 30 UNITS/0.3 ML VIAL SC SCH (20:28)
[2022-10-27] MEDS: Morphine 2 MG/ML VIAL SLOW IVP PRN ×2 (03:35→09:19)
[2022-10-27] MEDS: Cefepime 2 GM in Sodium Chloride 0.9% 100 ML IVPB SCH ×2 (09:08→21:23)
[2022-10-27] MEDS: Sertraline 100 MG TAB PO SCH (09:09)
[2022-10-27] MEDS: Gabapentin 300 MG CAP PO SCH ×3 (09:09→21:23)
[2022-10-27] MEDS: Carvedilol 3.125 MG TAB PO SCH (09:09)
[2022-10-27] MEDS: Spironolactone 25 MG TAB PO SCH (09:09)
[2022-10-27] MEDS: Torsemide 20 MG TAB PO SCH (09:10)
[2022-10-27 11:00] LABS: Vancomycin, Trough 20.5 ug/mL
[2022-10-27] MEDS ORDERED: Vancomycin HCl 500 MG in Sodium Chloride 0.9% 100 ML IVPB SCH (12:00)
[2022-10-27] MEDS: Vancomycin HCl 750 MG in Sodium Chloride 0.9% 250 ML 250 ML IVPB SCH (12:01)
[2022-10-27] MEDS: HumaLOG 300 UNITS/3 ML VIAL SC PRN (12:11)
[2022-10-27] MEDS: HYDROcodone/Acetaminophen 7.5/325 mg Tablet PO PRN ×2 (15:13→21:22)
[2022-10-27] MEDS: Carvedilol 6.25 MG TAB PO SCH (17:45)
[2022-10-27] MEDS: Atorvastatin Calcium 40 MG TAB PO SCH (21:22)
[2022-10-27] MEDS: Insulin Glargine 30 UNITS/0.3 ML VIAL SC SCH (21:23)
[2022-10-28] MEDS: HYDROcodone/Acetaminophen 7.5/325 mg Tablet PO PRN ×3 (03:13→21:05)
[2022-10-28] MEDS: HumaLOG 300 UNITS/3 ML VIAL SC PRN ×3 (05:31→17:01)
[2022-10-28] MEDS: Carvedilol 6.25 MG TAB PO SCH ×2 (09:43→16:52)
[2022-10-28] MEDS: Gabapentin 300 MG CAP PO SCH ×3 (09:43→21:05)
[2022-10-28] MEDS: Spironolactone 25 MG TAB PO SCH (09:43)
[2022-10-28] MEDS: Torsemide 20 MG TAB PO SCH (09:43)
[2022-10-28] MEDS: Sertraline 100 MG TAB PO SCH (09:43)
[2022-10-28] MEDS: Cefepime 2 GM in Sodium Chloride 0.9% 100 ML IVPB SCH ×2 (09:44→21:05)
[2022-10-28] MEDS: Morphine 4 MG/ML VIAL SLOW IVP PRN ×2 (09:46→23:00)
[2022-10-28] MEDS: Atorvastatin Calcium 40 MG TAB PO SCH (21:05)
[2022-10-28] MEDS: Insulin Glargine 30 UNITS/0.3 ML VIAL SC SCH (21:06)
[2022-10-29] MEDS: HYDROcodone/Acetaminophen 7.5/325 mg Tablet PO PRN ×4 (06:11→22:32)
[2022-10-29] MEDS: HumaLOG 300 UNITS/3 ML VIAL SC PRN ×3 (06:12→17:25)
[2022-10-29 07:33] LABS: #Eosinphils 0.8 thou/uL (0.0-0.7); #Lymphocytes 1.4 thou/uL (1.20-3.40); #Monocytes 0.9 thou/uL (0.11-0.59); #Neutrophils 7.7 thou/uL (1.40-6.50); %Basophils 0.2 % (0.0-1.0); %Eosinophils 7.7 % (0.0-10.0); %Lymphocytes 13.3 % (21.0-51.0); %Monocytes 7.9 % (0.0-10.0); %Neutrophils 70.9 % (42.0-75.0); Hemoglobin 13.3 g/dL (12.0-16.0); Mean Corpuscular HGB CONC 29.8 g/dL (32.0-36.0); Mean Corpuscular Hemoglobin 25.2 pg (27.0-31.0); Mean Corpuscular Volume 84.6 fl (78.0-98.0); Mean Platelet Volume 8.5 fL (7.4-10.4); Platelet Count 496 10x3/uL (130-400); Red Blood Cell (RBC) Count 5.28 mill/uL (4.20-5.40); White Blood Cell (WBC) Count 10.8 10x3/uL (4.8-10.8)
[2022-10-29] MEDS: Sertraline 100 MG TAB PO SCH (08:33)
[2022-10-29] MEDS: Spironolactone 25 MG TAB PO SCH (08:33)
[2022-10-29] MEDS: Gabapentin 300 MG CAP PO SCH ×3 (08:33→22:21)
[2022-10-29] MEDS: Cefepime 2 GM in Sodium Chloride 0.9% 100 ML IVPB SCH ×2 (08:34→22:21)
[2022-10-29] MEDS: Carvedilol 6.25 MG TAB PO SCH ×2 (08:34→16:15)
[2022-10-29] MEDS: Torsemide 20 MG TAB PO SCH (08:34)
[2022-10-29 08:44] LABS: Anisocytosis MODERATE=16-30 cells (100X) (0-5/hpf); Hypochromia SLIGHT = 6-15 cells (100X) (0-5/hpf); MDiff Complete? YES; Platelet Morphology Comment Appears Increased; Polychromasia SLIGHT = 2-3 cells (100X) (0-2/hpf)
[2022-10-29] MEDS: Morphine 4 MG/ML VIAL SLOW IVP PRN ×2 (11:19→23:41)
[2022-10-29 11:30] LABS: Anion Gap 16 mmol/L (10-20); BUN (Urea Nitrogen) 26 mg/dL (7.0-18.7); Calc. Creatinine Clearance 128 mL/min (70-130); Calcium 9.5 mg/dL (7.8-10.44); Carbon Dioxide 20 mmol/L (22-29); Chloride 102 mmol/L (98-107); Estimated GFR 92; Glucose 225 mg/dL (70-105); Potassium 4.1 mmol/L (3.5-5.1); Sodium 134 mmol/L (136-145)
[2022-10-29] MEDS: Atorvastatin Calcium 40 MG TAB PO SCH (22:21)
[2022-10-29] MEDS: Insulin Glargine 30 UNITS/0.3 ML VIAL SC SCH (22:22)
[2022-10-30] MEDS: HumaLOG 300 UNITS/3 ML VIAL SC PRN ×3 (06:14→20:29)
[2022-10-30] MEDS: Spironolactone 25 MG TAB PO SCH (09:38)
[2022-10-30] MEDS: Gabapentin 300 MG CAP PO SCH ×3 (09:38→20:30)
[2022-10-30] MEDS: Sertraline 100 MG TAB PO SCH (09:39)
[2022-10-30] MEDS: HYDROcodone/Acetaminophen 7.5/325 mg Tablet PO PRN ×2 (09:40→16:26)
[2022-10-30] MEDS: Cefepime 2 GM in Sodium Chloride 0.9% 100 ML IVPB SCH ×2 (09:41→20:34)
[2022-10-30] MEDS: Torsemide 20 MG TAB PO SCH (09:41)
[2022-10-30] MEDS: Carvedilol 6.25 MG TAB PO SCH ×2 (09:42→17:05)
[2022-10-30] MEDS: Morphine 4 MG/ML VIAL SLOW IVP PRN (12:01)
[2022-10-30 20:00] VITALS: BP 104/68; TEMP 98.3
[2022-10-30] MEDS: Insulin Glargine 30 UNITS/0.3 ML VIAL SC SCH (20:29)
[2022-10-30] MEDS: Atorvastatin Calcium 40 MG TAB PO SCH (20:30)
== END 2022-10-30 20:35 | disposition swing bed (61) | DRG 571 ==
LOC: ERS 15:20 → 2NO 18:08 → OBSVTOIN 21:16 → T4-A 10-25 20:58
PROVIDERS: ADMIT Internal Medicine; ATTEND Family Medicine
PROC: 0JB70ZZ Excision of Back Subcutaneous Tissue and Fascia, Open Approach (ICD-10-PCS; principal; 2022-10-24)
DX: L89.154 Pressure ulcer of sacral region, stage 4 (principal); I50.22 Chronic systolic (congestive) heart failure; Z68.41 Body mass index [BMI] 40.0-44.9, adult; L89.324 Pressure ulcer of left buttock, stage 4; I25.5 Ischemic cardiomyopathy; I11.0 Hypertensive heart disease with heart failure; R77.8 Other specified abnormalities of plasma proteins; E78.5 Hyperlipidemia, unspecified; E11.9 Type 2 diabetes mellitus without complications; F41.9 Anxiety disorder, unspecified; F32.A Depression, unspecified; E66.01 Morbid (severe) obesity due to excess calories; Z98.890 Other specified postprocedural states; Z88.0 Allergy status to penicillin; Z88.1 Allergy status to other antibiotic agents; Z79.82 Long term (current) use of aspirin; Z79.51 Long term (current) use of inhaled steroids; Z79.899 Other long term (current) drug therapy; Z79.4 Long term (current) use of insulin; Z95.1 Presence of aortocoronary bypass graft; Z95.810 Presence of automatic (implantable) cardiac defibrillator; Z90.721 Acquired absence of ovaries, unilateral; Z87.891 Personal history of nicotine dependence
CPT/HCPCS: 36415; 36416; 70450; 72193; 76856; 80048; 80053; 80076; 80202; 82553; 82805; 83605; 83690; 83735; 83880; 84484; 85025; 85652; 86140; 87040; 87081; 88305; 93005; 97139; G0378; J0692; J1815; J1885; J2270; J2272; J2370; J2405; J2704; J3370; J3370-JW; J3480; J3490; J7050

== ENCOUNTER 2023-01-06 17:41 | Inpatient (IN) | payer MEDICARE, MEDICAID ==
[2023-01-06 18:47] LABS: #Basophils 0.1 thou/uL (0.0-0.2); #Eosinphils 0.1 thou/uL (0.0-0.7); #Monocytes 0.7 thou/uL (0.11-0.59); #Neutrophils 10.7 thou/uL (1.40-6.50); %Basophils 0.6 % (0.0-1.0); %Eosinophils 0.7 % (0.0-10.0); %Lymphocytes 14.6 % (21.0-51.0); %Monocytes 5.1 % (0.0-10.0); %Neutrophils 77.2 % (42.0-75.0); Hemoglobin 10.8 g/dL (12.0-16.0); Mean Corpuscular HGB CONC 30.5 g/dL (32.0-36.0); Mean Corpuscular Hemoglobin 26.9 pg (27.0-31.0); Mean Corpuscular Volume 88.1 fl (78.0-98.0); Mean Platelet Volume 9.5 fL (7.4-10.4); Platelet Count 499 10x3/uL (130-400); Red Blood Cell (RBC) Count 4.02 mill/uL (4.20-5.40); White Blood Cell (WBC) Count 13.9 10x3/uL (4.8-10.8)
[2023-01-06 19:15] LABS: ALT (SGPT) Less than 7 U/L (8-55); AST (SGOT) 6 U/L (5-34); Albumin 2.7 g/dL (3.5-5.0); Alkaline Phosphatase 93 U/L (40-110); Anion Gap 12 mmol/L (10-20); BUN (Urea Nitrogen) 10 mg/dL (7.0-18.7); Bilirubin, Total 0.4 mg/dL (0.2-1.2); Calc. Creatinine Clearance 0 mL/min (70-130); Calcium 8.5 mg/dL (7.8-10.44); Carbon Dioxide 23 mmol/L (22-29); Chloride 108 mmol/L (98-107); Estimated GFR 99; Globulin 4.7 g/dL (2.4-3.5); Glucose 161 mg/dL (70-105); Potassium 3.2 mmol/L (3.5-5.1); Protein, Total 7.4 g/dL (6.0-8.3); Sodium 140 mmol/L (136-145)
[2023-01-06] MEDS ORDERED: fentaNYL 50 mcg/mL 1 mL Vial ONE (21:49)
[2023-01-06] MEDS ORDERED: Cefepime 2 GM VIAL ONE (22:38)
[2023-01-06] MEDS ORDERED: VANCOMYCIN 2 GRAM/500 ML BAG 2 GM in Premix Bag 1 BAG IVPB SCH (23:00)
[2023-01-07] MEDS ORDERED: fentaNYL 50 mcg/mL 1 mL Vial ONE (00:23)
[2023-01-07 01:37] VITALS: BMI 39.7
[2023-01-07] MEDS ORDERED: Acetaminophen 325 MG TAB PO PRN (02:31)
[2023-01-07] MEDS ORDERED: Ondansetron PF 4 MG/2 ML Vial IVP PRN (02:31)
[2023-01-07] MEDS ORDERED: Dextrose 50% Abboject 50 ML SYRINGE SLOW IVP PRN (02:39)
[2023-01-07] MEDS ORDERED: Dextrose 5% in Water 1,000 ML IV PRN (02:39)
[2023-01-07] MEDS ORDERED: Glucagon 1 MG/ML KIT IM PRN (02:39)
[2023-01-07] MEDS ORDERED: HumaLOG 300 UNITS/3 ML VIAL SC PRN (02:39)
[2023-01-07] MEDS ORDERED: Albuterol 200 PUFF (6.7GM INHALER) INH PRN (02:40)
[2023-01-07] MEDS: Morphine 2 MG/ML VIAL SLOW IVP PRN ×5 (02:43→20:12)
[2023-01-07] MEDS: HYDROcodone/Acetaminophen 7.5/325 mg Tablet PO PRN ×3 (03:11→23:09)
[2023-01-07] MEDS: Potassium Chloride 20 MEQ in Premix Bag 1 BAG IVPB SCH ×2 (03:11→05:26)
[2023-01-07 07:08] LABS: #Basophils 0.1 thou/uL (0.0-0.2); #Eosinphils 0.2 thou/uL (0.0-0.7); #Monocytes 0.8 thou/uL (0.11-0.59); #Neutrophils 10.7 thou/uL (1.40-6.50); %Basophils 0.6 % (0.0-1.0); %Eosinophils 1.1 % (0.0-10.0); %Lymphocytes 14.5 % (21.0-51.0); %Monocytes 5.8 % (0.0-10.0); %Neutrophils 76.6 % (42.0-75.0); Hemoglobin 10.5 g/dL (12.0-16.0); Mean Corpuscular HGB CONC 30.8 g/dL (32.0-36.0); Mean Corpuscular Hemoglobin 26.7 pg (27.0-31.0); Mean Corpuscular Volume 86.8 fl (78.0-98.0); Mean Platelet Volume 9.9 fL (7.4-10.4); Platelet Count 461 10x3/uL (130-400); RBC Distribution Width 18.2 % (11.5-14.5); Red Blood Cell (RBC) Count 3.93 mill/uL (4.20-5.40)
[2023-01-07 07:33] LABS: Anion Gap 9 mmol/L (10-20); BUN (Urea Nitrogen) 9 mg/dL (7.0-18.7); Calc. Creatinine Clearance 148 mL/min (70-130); Calcium 8.5 mg/dL (7.8-10.44); Carbon Dioxide 23 mmol/L (22-29); Chloride 108 mmol/L (98-107); Estimated GFR 111; Glucose 145 mg/dL (70-105); Magnesium 1.5 mg/dL (1.6-2.6); Potassium 3.6 mmol/L (3.5-5.1); Sodium 136 mmol/L (136-145)
[2023-01-07 07:38] LABS: Hemoglobin A1c 10.8 % (4.0-6.0)
[2023-01-07] MEDS ORDERED: Magnesium 2 GM/50 ML(in water) 2 GM in Premix Bag 1 BAG IVPB SCH (08:45)
[2023-01-07] MEDS: Carvedilol 6.25 MG TAB PO SCH ×2 (09:09→17:55)
[2023-01-07] MEDS: Sertraline 100 MG TAB PO SCH (09:10)
[2023-01-07] MEDS: Gabapentin 300 MG CAP PO SCH ×3 (09:10→20:12)
[2023-01-07] MEDS: Cefepime 2 GM in Sodium Chloride 0.9% 100 ML IVPB SCH ×2 (10:36→23:08)
[2023-01-07] MEDS: Vancomycin HCl 750 MG in Sodium Chloride 0.9% 250 ML 250 ML IVPB SCH (12:17)
[2023-01-07] MEDS: Atorvastatin Calcium 40 MG TAB PO SCH (20:12)
[2023-01-07] MEDS ORDERED: Insulin Glargine 30 UNITS/0.3 ML VIAL SC SCH (21:00)
[2023-01-08] MEDS: Vancomycin HCl 750 MG in Sodium Chloride 0.9% 250 ML 250 ML IVPB SCH ×2 (00:18→12:00)
[2023-01-08] MEDS: Morphine 2 MG/ML VIAL SLOW IVP PRN (01:33)
[2023-01-08] MEDS: HYDROcodone/Acetaminophen 7.5/325 mg Tablet PO PRN ×5 (05:50→22:52)
[2023-01-08] MEDS: HumaLOG 300 UNITS/3 ML VIAL SC PRN (05:51)
[2023-01-08 07:10] LABS: #Basophils 0.1 thou/uL (0.0-0.2); #Eosinphils 0.3 thou/uL (0.0-0.7); #Monocytes 0.9 thou/uL (0.11-0.59); #Neutrophils 7.1 thou/uL (1.40-6.50); %Basophils 0.7 % (0.0-1.0); %Eosinophils 2.8 % (0.0-10.0); %Lymphocytes 18.2 % (21.0-51.0); %Monocytes 8.3 % (0.0-10.0); Hemoglobin 10.7 g/dL (12.0-16.0); Mean Corpuscular HGB CONC 29.2 g/dL (32.0-36.0); Mean Corpuscular Hemoglobin 27.1 pg (27.0-31.0); Mean Platelet Volume 10.9 fL (7.4-10.4); Platelet Count 381 10x3/uL (130-400); RBC Distribution Width 18.4 % (11.5-14.5); Red Blood Cell (RBC) Count 3.95 mill/uL (4.20-5.40); White Blood Cell (WBC) Count 10.3 10x3/uL (4.8-10.8)
[2023-01-08 07:17] LABS: Mean Corpuscular Volume 92.9 fl (78.0-98.0)
[2023-01-08 07:34] LABS: Anion Gap 14 mmol/L (10-20); BUN (Urea Nitrogen) 17 mg/dL (7.0-18.7); Calc. Creatinine Clearance 136 mL/min (70-130); Calcium 8.5 mg/dL (7.8-10.44); Carbon Dioxide 17 mmol/L (22-29); Chloride 107 mmol/L (98-107); Estimated GFR 100; Glucose 167 mg/dL (70-105); Magnesium 1.9 mg/dL (1.6-2.6); Potassium 3.4 mmol/L (3.5-5.1); Sodium 135 mmol/L (136-145)
[2023-01-08] MEDS: Carvedilol 6.25 MG TAB PO SCH ×2 (08:33→16:44)
[2023-01-08] MEDS: Sertraline 100 MG TAB PO SCH (08:33)
[2023-01-08] MEDS: Gabapentin 300 MG CAP PO SCH ×3 (08:33→21:07)
[2023-01-08] MEDS: Insulin Glargine 30 UNITS/0.3 ML VIAL SC SCH ×2 (08:34→21:08)
[2023-01-08] MEDS: Cefepime 2 GM in Sodium Chloride 0.9% 100 ML IVPB SCH ×2 (10:18→22:53)
[2023-01-08 11:44] LABS: Vancomycin, Trough 14.1 ug/mL
[2023-01-08] MEDS: Atorvastatin Calcium 40 MG TAB PO SCH (21:08)
[2023-01-09] MEDS: Vancomycin HCl 750 MG in Sodium Chloride 0.9% 250 ML 250 ML IVPB SCH ×2 (00:01→14:13)
[2023-01-09] MEDS: HYDROcodone/Acetaminophen 7.5/325 mg Tablet PO PRN ×3 (05:16→14:12)
[2023-01-09] MEDS: HumaLOG 300 UNITS/3 ML VIAL SC PRN ×2 (05:17→12:20)
[2023-01-09 06:18] LABS: #Basophils 0.1 thou/uL (0.0-0.2); #Eosinphils 0.2 thou/uL (0.0-0.7); #Monocytes 0.6 thou/uL (0.11-0.59); #Neutrophils 6.5 thou/uL (1.40-6.50); %Basophils 0.8 % (0.0-1.0); %Eosinophils 2.6 % (0.0-10.0); %Lymphocytes 18.3 % (21.0-51.0); %Monocytes 6.7 % (0.0-10.0); %Neutrophils 70.8 % (42.0-75.0); Hemoglobin 10.7 g/dL (12.0-16.0); Mean Corpuscular HGB CONC 29.2 g/dL (32.0-36.0); Mean Corpuscular Hemoglobin 26.3 pg (27.0-31.0); Mean Corpuscular Volume 90.2 fl (78.0-98.0); Mean Platelet Volume 9.9 fL (7.4-10.4); Platelet Count 403 10x3/uL (130-400); RBC Distribution Width 18.5 % (11.5-14.5); Red Blood Cell (RBC) Count 4.07 mill/uL (4.20-5.40); White Blood Cell (WBC) Count 9.2 10x3/uL (4.8-10.8)
[2023-01-09 06:43] LABS: Anion Gap 12 mmol/L (10-20); BUN (Urea Nitrogen) 18 mg/dL (7.0-18.7); Calc. Creatinine Clearance 146 mL/min (70-130); Calcium 8.4 mg/dL (7.8-10.44); Carbon Dioxide 21 mmol/L (22-29); Chloride 107 mmol/L (98-107); Estimated GFR 109; Glucose 167 mg/dL (70-105); Magnesium 2.1 mg/dL (1.6-2.6); Potassium 3.3 mmol/L (3.5-5.1); Sodium 137 mmol/L (136-145)
[2023-01-09] MEDS: Insulin Glargine 30 UNITS/0.3 ML VIAL SC SCH (08:21)
[2023-01-09] MEDS: Sertraline 100 MG TAB PO SCH (08:22)
[2023-01-09] MEDS: Gabapentin 300 MG CAP PO SCH ×2 (08:22→14:41)
[2023-01-09] MEDS: Carvedilol 6.25 MG TAB PO SCH (08:23)
[2023-01-09] MEDS: Cefepime 2 GM in Sodium Chloride 0.9% 100 ML IVPB SCH (11:42)
[2023-01-09 14:58] VITALS: BP 136/95; TEMP 97.8
== END 2023-01-09 15:29 | disposition home health service (06) | DRG 637 ==
LOC: ERS 17:41 → T4-A 01-07 00:23
PROVIDERS: ADMIT Internal Medicine; ATTEND Internal Medicine
DX: E11.621 Type 2 diabetes mellitus with foot ulcer (principal); L89.324 Pressure ulcer of left buttock, stage 4; I50.22 Chronic systolic (congestive) heart failure; L97.515 Non-pressure chronic ulcer of other part of right foot with muscle involvement without evidence of necrosis; L97.525 Non-pressure chronic ulcer of other part of left foot with muscle involvement without evidence of necrosis; I25.10 Atherosclerotic heart disease of native coronary artery without angina pectoris; I25.5 Ischemic cardiomyopathy; E78.5 Hyperlipidemia, unspecified; F32.A Depression, unspecified; F41.9 Anxiety disorder, unspecified; I11.0 Hypertensive heart disease with heart failure; E11.65 Type 2 diabetes mellitus with hyperglycemia; E66.9 Obesity, unspecified; Z68.39 Body mass index [BMI] 39.0-39.9, adult; Z88.1 Allergy status to other antibiotic agents; Z88.0 Allergy status to penicillin; Z79.82 Long term (current) use of aspirin; Z79.4 Long term (current) use of insulin; Z95.1 Presence of aortocoronary bypass graft; Z95.810 Presence of automatic (implantable) cardiac defibrillator; Z90.721 Acquired absence of ovaries, unilateral; Z87.891 Personal history of nicotine dependence
CPT/HCPCS: 36415; 36416; 71045; 80048; 80053; 80202; 83036; 83605; 83735; 85025; 87040; 96365; 96367; 96375; 96376; 97139; J0692; J1815; J2272; J3010; J3370; J3475; J3480; J3490; J7050

== ENCOUNTER 2024-01-19 13:30 | Emergency (ER) | payer MEDICARE, MEDICAID, OTHER | END 2024-01-19 19:16 | disposition home or self-care (01) | LOC: ERS 13:30 | DX: T82.524A Displacement of infusion catheter, initial encounter (principal); I11.0 Hypertensive heart disease with heart failure; I50.9 Heart failure, unspecified; E11.9 Type 2 diabetes mellitus without complications; Z87.891 Personal history of nicotine dependence; Z86.16 Personal history of COVID-19; Z95.1 Presence of aortocoronary bypass graft; Z89.511 Acquired absence of right leg below knee | CPT/HCPCS: 99282 ==

== ENCOUNTER 2025-06-28 16:10 | Inpatient (IN) | payer MEDICARE ==
[2025-06-28] MEDS ORDERED: Ondansetron PF 4 MG/2 ML Vial IVP PRN (19:15)
[2025-06-28] MEDS ORDERED: Dextrose 50% Abboject 50 ML SYRINGE SLOW IVP PRN (19:15)
[2025-06-28] MEDS ORDERED: Glucagon 1 MG/ML KIT IM PRN (19:15)
[2025-06-28 19:44] VITALS: BMI 49.7
[2025-06-28] MEDS ORDERED: Insulin Glargine 30 UNITS/0.3 ML VIAL SC SCH (21:00)
[2025-06-28] MEDS: Ferrous Gluconate 324 MG TAB PO SCH (21:17)
[2025-06-28] MEDS: Insulin Glargine 30 UNITS/0.3 ML VIAL SC SCH (21:18)
[2025-06-28] MEDS: Aspirin Chewable 81 MG TAB PO SCH (21:18)
[2025-06-29 05:28] LABS: #Basophils 0.09 10x3/uL (0.0-0.2); #Eosinophils 0.12 10x3/uL (0.0-0.7); #Monocytes 0.83 10x3/uL (0.11-0.59); #Neutrophils 7.83 10x3/uL (1.40-6.50); %Basophils 0.8 % (0.0-1.0); %Eosinophils 1.1 % (0.0-10.0); %Lymphocytes 15.8 % (21.0-51.0); %Monocytes 7.8 % (0.0-10.0); %Neutrophils 74.0 % (42.0-75.0); Hematocrit 29.5 % (36.0-47.0); Hemoglobin 8.0 g/dL (12.0-16.0); Mean Corpuscular Hemoglobin 20.8 pg (27.0-31.0); Mean Corpuscular Volume 76.6 fL (78.0-98.0); Platelet Count 393 10x3/uL (130-400); Red Blood Cell (RBC) Count 3.85 mill/uL (4.20-5.40); White Blood Cell (WBC) Count 10.59 10x3/uL (4.8-10.8)
[2025-06-29 05:51] LABS: ALT (SGPT) Less than 7 U/L (Less than 34); AST (SGOT) 20 U/L (11-34); Albumin 2.9 g/dL (3.1-4.5); Alkaline Phosphatase 69 U/L (40-110); Anion Gap 13 mmol/L (10-20); BUN (Urea Nitrogen) 18 mg/dL (7.0-18.7); Bilirubin, Total 0.7 mg/dL (0.3-1.2); Calc. Creatinine Clearance 179 mL/min (70-130); Calcium 8.4 mg/dL (7.8-10.44); Carbon Dioxide 20 mmol/L (22-29); Cardiac Risk 3.4 (Less than 4.5); Chloride 109 mmol/L (98-107); Cholesterol 112 mg/dl (< 200 Desired); Globulin 3.5 g/dL (2.4-3.5); Glucose 129 mg/dL (70-105); HDL Cholesterol 33 mg/dL (>60 Neg Risk); LDL Cholesterol, Calculated 66 mg/dL; Potassium 4.3 mmol/L (3.5-5.1); Sodium 138 mmol/L (136-145); Triglycerides 67 mg/dL (Less than 150)
[2025-06-29] MEDS: Enoxaparin 40 MG (0.4 mL) SYRINGE SC SCH ×2 (09:21→20:15)
[2025-06-29] MEDS: Metoprolol Succinate XL 25 MG ER.TAB PO SCH (09:21)
[2025-06-29] MEDS: Ezetimibe 10 MG TAB PO SCH (09:21)
[2025-06-29] MEDS: Pantoprazole 40 MG DR.TAB PO SCH (09:23)
[2025-06-29] MEDS: BuPROPion XL 150 MG ER.TAB PO SCH (09:23)
[2025-06-29] MEDS: Aspirin Chewable 81 MG TAB PO SCH (09:23)
[2025-06-29] MEDS: Acetaminophen 325 MG TAB PO PRN (10:51)
[2025-06-29] MEDS: Furosemide 20 MG (2 mL) VIAL SLOW IVP SCH (18:35)
[2025-06-30] MEDS: Nitroglycerin 0.4 MG TAB (25 Tab Bottle) SL PRN (03:37)
[2025-06-30 05:17] LABS: #Basophils 0.12 10x3/uL (0.0-0.2); #Eosinophils 0.15 10x3/uL (0.0-0.7); #Monocytes 0.97 10x3/uL (0.11-0.59); #Neutrophils 7.01 10x3/uL (1.40-6.50); %Basophils 1.2 % (0.0-1.0); %Eosinophils 1.5 % (0.0-10.0); %Lymphocytes 18.8 % (21.0-51.0); %Monocytes 9.5 % (0.0-10.0); %Neutrophils 68.3 % (42.0-75.0); Hematocrit 31.6 % (36.0-47.0); Hemoglobin 8.6 g/dL (12.0-16.0); Mean Corpuscular Hemoglobin 20.8 pg (27.0-31.0); Mean Corpuscular Volume 76.5 fL (78.0-98.0); Platelet Count 499 10x3/uL (130-400); Red Blood Cell (RBC) Count 4.13 mill/uL (4.20-5.40); White Blood Cell (WBC) Count 10.25 10x3/uL (4.8-10.8)
[2025-06-30 05:53] LABS: Anisocytosis SLIGHT = 6-15 cells HPF (0-5); Burr Cells SLIGHT = 2-5 cells HPF (0-1); Microcytosis SLIGHT = 6-15 cells HPF (0-5); Platelet Adequacy Comment Platelets Increased; Polychromasia SLIGHT = 2-3 cells HPF (0-2)
[2025-06-30 05:55] LABS: ALT (SGPT) 9 U/L (Less than 34); AST (SGOT) 21 U/L (11-34); Albumin 3.0 g/dL (3.1-4.5); Alkaline Phosphatase 78 U/L (40-110); Anion Gap 14 mmol/L (10-20); BUN (Urea Nitrogen) 20 mg/dL (7.0-18.7); Bilirubin, Total 0.6 mg/dL (0.3-1.2); Calc. Creatinine Clearance 129 mL/min (70-130); Calcium 8.5 mg/dL (7.8-10.44); Carbon Dioxide 19 mmol/L (22-29); Chloride 107 mmol/L (98-107); Globulin 3.6 g/dL (2.4-3.5); Glucose 133 mg/dL (70-105); Potassium 3.9 mmol/L (3.5-5.1); Sodium 136 mmol/L (136-145)
[2025-06-30] MEDS: Furosemide 20 MG (2 mL) VIAL SLOW IVP SCH (09:19)
[2025-06-30] MEDS: Cyclobenzaprine 10 MG TAB PO PRN (12:35)
[2025-06-30] MEDS: Furosemide 40 MG (4 mL) VIAL SLOW IVP SCH (16:19)
[2025-07-01 04:35] LABS: #Basophils 0.10 10x3/uL (0.0-0.2); #Eosinophils 0.10 10x3/uL (0.0-0.7); #Monocytes 0.85 10x3/uL (0.11-0.59); #Neutrophils 7.30 10x3/uL (1.40-6.50); %Basophils 1.0 % (0.0-1.0); %Eosinophils 1.0 % (0.0-10.0); %Lymphocytes 12.8 % (21.0-51.0); %Monocytes 8.8 % (0.0-10.0); %Neutrophils 75.9 % (42.0-75.0); Hematocrit 31.1 % (36.0-47.0); Hemoglobin 8.5 g/dL (12.0-16.0); Mean Corpuscular Hemoglobin 21.0 pg (27.0-31.0); Mean Corpuscular Volume 77.0 fL (78.0-98.0); Platelet Count 514 10x3/uL (130-400); Red Blood Cell (RBC) Count 4.04 mill/uL (4.20-5.40); White Blood Cell (WBC) Count 9.63 10x3/uL (4.8-10.8)
[2025-07-01 04:38] LABS: ALT (SGPT) 11 U/L (Less than 34); AST (SGOT) 24 U/L (11-34); Albumin 2.9 g/dL (3.1-4.5); Alkaline Phosphatase 72 U/L (40-110); Anion Gap 12 mmol/L (10-20); BUN (Urea Nitrogen) 17 mg/dL (7.0-18.7); Bilirubin, Total 0.7 mg/dL (0.3-1.2); Calc. Creatinine Clearance 135 mL/min (70-130); Calcium 8.4 mg/dL (7.8-10.44); Carbon Dioxide 20 mmol/L (22-29); Chloride 107 mmol/L (98-107); Globulin 3.6 g/dL (2.4-3.5); Glucose 95 mg/dL (70-105); Potassium 3.7 mmol/L (3.5-5.1); Sodium 135 mmol/L (136-145)
[2025-07-01] MEDS: PNEUMOC 20-VAL CONJ-DIP CRM/PF 0.5 ML SYRINGE IM ONE (09:41)
[2025-07-01] MEDS: FLU (Fluarix Triv) 25-26 (6MOS UP)/PF 45 MCG/0.5 ML Syringe IM ONE (09:41)
[2025-07-01] MEDS: Furosemide 20 MG (2 mL) VIAL SLOW IVP SCH (10:22)
[2025-07-01 16:06] VITALS: BP 102/72; TEMP 97.4
== END 2025-07-01 17:12 | disposition home or self-care (01) | DRG 291 ==
LOC: 2NO 18:10 → INTOOBSV 18:10 → OBSVTOIN 06-29 17:12
PROVIDERS: ADMIT Family Medicine; ATTEND Family Medicine
DX: I11.0 Hypertensive heart disease with heart failure (principal); I50.23 Acute on chronic systolic (congestive) heart failure; R45.851 Suicidal ideations; R18.0 Malignant ascites; I25.10 Atherosclerotic heart disease of native coronary artery without angina pectoris; E11.51 Type 2 diabetes mellitus with diabetic peripheral angiopathy without gangrene; I42.0 Dilated cardiomyopathy; C53.9 Malignant neoplasm of cervix uteri, unspecified; Z88.1 Allergy status to other antibiotic agents; R07.89 Other chest pain; Z79.899 Other long term (current) drug therapy; Z79.4 Long term (current) use of insulin; Z79.02 Long term (current) use of antithrombotics/antiplatelets; Z90.721 Acquired absence of ovaries, unilateral; Z89.511 Acquired absence of right leg below knee; Z87.891 Personal history of nicotine dependence; Z95.818 Presence of other cardiac implants and grafts; Z88.0 Allergy status to penicillin; Z95.1 Presence of aortocoronary bypass graft; D50.9 Iron deficiency anemia, unspecified; I27.21 Secondary pulmonary arterial hypertension; Z95.810 Presence of automatic (implantable) cardiac defibrillator; Z86.718 Personal history of other venous thrombosis and embolism; R35.0 Frequency of micturition
CPT/HCPCS: 36415; 36416; 71045; 80053; 80061; 83036; 83880; 84443; 84484; 85025; 93005; 93010; 94760; 96372; G0378; J1650; J1815; J1940; J2272